=== PATIENT | female | born 1985 | race Caucasian/White ===

== ENCOUNTER 2020-02-05 02:27 | Emergency (ER) | payer SELFPAY ==
[2020-02-05] VITALS (8 sets, daily range): BP systolic 121–139; BP diastolic 79–103; PULSE 78–91; RESP 16–20; TEMP 37.3; O2SAT 96–99; BMI 26.5
--- NOTE | 2020-02-05 02:31 | ED_ITS ---
HPI - Abdominal Pain General: Chief Complaint: Abdominal Pain Stated Complaint: abd pain Time Seen by Provider: 02/05/20 02:28 Source: patient and EMS Mode of arrival: EMS Limitations: no limitations History of Present Illness: HPI narrative: 34-year-old female who states she has had sudden onset of left-sided flank pain is severe in nature. She has no history of kidney stones. Denies any worsening improving factors. Has had nausea and vomiting. MD elicited complaint: abdominal pain Pertinent past history: none Onset (ago): hour(s) Location: Diffuse Severity: severe Quality: stabbing Radiation: none Migration to: no migration Exacerbating factors: nothing Relieving factors: nothing Associated Symptoms: Reports nausea and vomiting; Denies chills, dysuria and fever(s) Review of Systems Const: Denies: fever(s), chills, body aches or change in appetite Eyes: Denies: blurry vision or eye discomfort ENMT: Denies: throat pain or dental pain Card: Denies: chest pain Resp: Denies: dyspnea GI: Reports: abdominal pain, nausea and vomiting : Denies: dysuria Musc: Denies: neck pain or back pain Skin/Breast: Denies: rash Neuro: Denies: headache(s) Psych: Denies: depression Bob/Lymph: Denies: easy bruising All/Imm: Denies: urticaria Physical Exam Const: COMMON NORMALS: no acute distress, patient oriented x3 and healthy appearing HENMT: COMMON NORMALS: normocephalic and atraumatic HEAD & SCALP: normocephalic and atraumatic Eye: COMMON NORMALS: Equal, round and reactive pupils present and EOMs intact bilaterally PUPIL: Yes Equal, round and reactive pupils present Neck/C-Spine: COMMON NORMALS: full ROM and supple Chest: COMMONS NORMALS: normal inspection of the chest and normal palpation of entire chest wall Resp: COMMON NORMALS: normal respiratory effort, No retractions, No use of accessory muscles and clear to auscultation bilaterally AUSCULTATION: clear to auscultation bilaterally Cardio: COMMON NORMALS: regular rate, regular rhythm and No murmurs present (Cardio) RATE: regular rate RHYTHM: regular rhythm GI: COMMON NORMALS: Normal to inspection, nondistended, normoactive bowel sounds present, Soft to palpation and no masses PALPATION: Yes Soft to pa lpation and Yes Tenderness to palpation present (GI) Extremity: COMMON NORMALS: normal to inspection and full ROM Neuro: COMMON NORMALS: patient oriented x3, moves all extremities and no focal motor deficits Psych: COMMON NORMALS: mental status grossly normal, Normal thought process present and cooperative THOUGHT PROCESS: Normal thought process present Skin: COMMON NORMALS: no rashes or lesions noted and no wounds GENERAL SKIN EXAM: no rashes or lesions noted Course Vital Signs: Vital signs: Vital Signs Temperature 99.2 F 02/05/20 02:28 Pulse Rate 78 02/05/20 05:07 Respiratory Rate 16 02/05/20 05:07 Blood Pressure 121/79 02/05/20 05:07 Pulse Oximetry 97 02/05/20 05:07 MDM - Abdominal Pain MDM Narrative: Medical decision making narrative: Patient presents here with a kidney stone. Kidney stone is 4 mm and should pass. We will send patient home with pain meds along with a urine strainer. She is to follow-up with Dr. Vuong. Her pain is much improved here. She is return if worsening. Lab Data: Labs: Lab Results 02/05/20 02/05/20 02/05/20 Range/Units 02:35 02:50 02:50 WBC 16.9 H (4.0-10.0) 10^3/ uL RBC 4.78 (4.1-5.3) 10^6/u L Hgb 13.9 (11.5-15.3) g/dL Hct 41.4 (37.0-47.0) % MCV 86.6 (81-99) fL MCH 29.1 (28.0-34.0) pg MCHC 33.6 (30.0-36.0) g/dL RDW 11.8 L (12.1-15.1) % Plt Count 308 (130-400) 10^3/c mm MPV 9.9 (7.4-10.4) fL Neut % (Auto) 82.3 % Lymph % (Auto) 12.5 % [place] % (Auto) 4.2 % Eos % (Auto) 0.1 % Baso % (Auto) 0.4 % Neut # (Auto) 13.88 H (1.8-7.7) 10^3/u L Lymph # (Auto) 2.1 (0.8-4.8) 10^3/u L [place] # (Auto) 0.7 (0.2-0.9) 10^3/u L Eos # (Auto) 0.0 (0.0-0.8) 10^3/u L Baso # (Auto) 0.1 (0.0-0.1) 10^3/u L Nucleated RBC % (a uto) 0 % Nucleated RBCs # 0.0 /100WBC Sodium 141 (136-145) mmol/L Potassium 4.4 (3.5-5.1) mmol/L Chloride 104 (98-107) mmol/L Carbon Dioxide 20 L (22-29) mmol/L Anion Gap 21.4 H (5-19) BUN 15 (6-20) mg/dL Creatinine 1.3 H (0.5-0.9) mg/dL GFR Calculation 46.9 L (90-130) mL/min Glucose 192 H (65-115) mg/dL Calculated Osmolal ity 293 (285-295) mOsm/k g Calcium 9.5 (8.5-10.5) mg/dL Total Bilirubin 0.5 (0.15-1.2) mg/dL AST 26 (0-32) U/L ALT 31 (0-33) U/L Alkaline Phosphata se 113 H (35-105) IU/L Total Protein 8.1 (6.6-8.7) g/dL Albumin 4.7 (3.5-5.2) g/dL Globulin 3.4 (1.3-4.6) g/dL Lipase 21 (13-60) U/L HCG, Qual (Negative) Urine Color Yellow (Yellow) Urine Appearance Hazy A (CLEAR) Urine pH 5 (5-7) Ur Specific Gravit y 1.015 (1.005-1.030) Urine Protein Neg (Negative) Urine Glucose (UA) Norm (Normal) Urine Ketones Negative (Negative) Urine Blood 3+ H (Negative) Urine Nitrate Negative (Negative) Urine Bilirubin Neg (NEGATIVE) Urine Urobilinogen Norm (Negative) mg/dL Ur Leukocyte Neena ase Negative (Negative) Urine RBC >100 H (0-2) /hpf Urine WBC 0-4 H (0-5) /hpf Ur Squamous Epith Cells 5-10 H (0-5) Amorphous Sediment Not Reportable Urine Bacteria 1+ H (NONE) Urine Mucus Trace 02/05/20 Range/Units 02:50 WBC (4.0-10.0) 10^3/ uL RBC (4.1-5.3) 10^6/u L Hgb (11.5-15.3) g/dL Hct (37.0-47.0) % MCV (81-99) fL MCH (28.0-34.0) pg MCHC (30.0-36.0) g/dL RDW (12.1-15.1) % Plt Count (130-400) 10^3/c mm MPV (7.4-10.4) fL Neut % (Auto) % Lymph % (Auto) % [place] % (Auto) % Eos % (Auto) % Baso % (Auto) % Neut # (Auto) (1.8-7.7) 10^3/u L Lymph # (Auto) (0.8-4.8) 10^3/u L [place] # (Auto) (0.2-0.9) 10^3/u L Eos # (Auto) (0.0-0.8) 10^3/u L Baso # (Auto) (0.0-0.1) 10^3/u L Nucleated RBC % (a uto) % Nucleated RBCs # /100WBC Sodium (136-145) mmol/L Potassium (3.5-5.1) mmol/L Chloride (98-107) mmol/L Carbon Dioxide (22-29) mmol/L Anion Gap (5-19) BUN (6-20) mg/dL Creatinine (0.5-0.9) mg/dL GFR Calculation (90-130) mL/min Glucose (65-115) mg/dL Calculated Osmolal ity (285-295) mOsm/k g Calcium (8.5-10.5) mg/dL Total Bilirubin (0.15-1.2) mg/dL AST (0-32) U/L ALT (0-33) U/L Alkaline Phosphata se (35-105) IU/L Total Protein (6.6-8.7) g/dL Albumin (3.5-5.2) g/dL Globulin (1.3-4.6) g/dL Lipase (13-60) U/L HCG, Qual Negative (Negative) Urine Color (Yellow) Urine Appearance (CLEAR) Urine pH (5-7) Ur Specific Gravit y (1.005-1.030) Urine Protein (Negative) Urine Glucose (UA) (Normal) Urine Ketones (Negative) Urine Blood (Negative) Urine Nitrate (Negative) Urine Bilirubin (NEGATIVE) Urine Urobilinogen (Negative) mg/dL Ur Leukocyte Neena ase (Negative) Urine RBC (0-2) /hpf Urine WBC (0-5) /hpf Ur Squamous Epith Cells (0-5) Amorphous Sediment Urine Bacteria (NONE) Urine Mucus Imaging Data ^: CT Abd/Pel: Radiologist's impression: [place] [address] CT Scan Report Signed Patient: Johnny Joyner Unit #: [id number] : 1985 Age/Sex: 34 / F ADM Date: 02/05/20 Loc: ER Room/Bed: Attending Dr: Ordering Provider/Ordering MD: Junito Luque MD Date of Service: 02/05/20 Procedure(s): CT abdomen pelvis w con* [id number] Accession Number(s): [id number] Report Number: [id number] PROCEDURE INFORMATION: Exam: CT Abdomen And Pelvis With Contrast Exam date and time: 02/05/2020 2:48 AM Age: 34 years old Clinical indication: Nausea; Abdominal pain; Localized; Left lower quadrant (llq); Additional info: Abd pain TECHNIQUE: Imaging protocol: Computed tomography of the abdomen and pelvis with intravenous contrast. Radiation optimization: All CT scans at this facility use at least one of these dose optimization techniques: automated exposure control; mA and/or kV adjustment per patient size (includes targeted exams where dose is matched to clinical indication); or iterative reconstruction. Contrast material: OMNI 300; Contrast volume: 95 ml; Contrast route: INTRAVENOUS (IV); COMPARISON: CT Abdomen/Pelvis Renal [id number] 03/22/2017 9:39 AM RADIATION DOSE METRICS: Total DLP (mGy-cm): 826.84 FINDINGS: Lungs: Mild atelectasis at bilateral lung bases. Liver: Unremarkable. Gallbladder and bile ducts: Unremarkable. Pancreas: Unremarkable. Spleen: Unremarkable. Adrenals: Unremarkable. Kidneys and ureters: The right kidney is unremarkable. There are several stones in the left kidney, largest 0.3 cm in the lower pole. There is a 0.4 cm stone in the left mid ureter (series 2, image 60). Mild left hydronephrosis. Mild inflammatory change of the left perinephric fat. Stomach and bowel: No bowel obstruction identified. No diverticulitis identified. Appendix: A normal-appearing appendix is seen in the right lower quadrant. Intraperitoneal space: No free intraperitoneal air identified. No free intraperitoneal fluid identified. Vasculature: No abdominal aortic aneurysm. Lymph nodes: Unremarkable. Bladder: Unremarkable as visualized. Reproductive: Unremarkable as visualized. Bones/joints: Unremarkable. No acute fracture. Soft tissues: Unremarkable. CT/CT abdomen pelvis w con* [id number] IMPRESSION: 1. There is a 0.4 cm stone in the left mid ureter. Mild left hydronephrosis. Discharge Plan Discharge Patient Disposition: Home, Self-Care Clinical Impression: Calculus of kidney Condition: Stable Prescriptions: [place] 5-325 mg tablet 1 tab PO Q6H PRN (Reason: pain) Qty: 14 RF: 0 ondansetron 4 mg tablet,disintegrating 4 mg PO Q6H PRN (Reason: nausea and vomiting) Qty: 14 RF: 0 Discharge Orders: Discharge Order (Routine); Ordered 02/05/20 Ordered By: Junito Luque Referrals: Alexander Vuong MD [Physician] - 4-7 days Discharge Diet: Advance as tolerated Discharge Activity: Resume usual activity Patient Instructions: Kidney Stones (ED) Coding Level of Care Code ED Apartment House Manager for Chg Fwd Exam Comprehensive
[2020-02-05] MEDS: HYDROmorphone 1 mg/mL INJ 1 mL IVP ×2 (02:48→03:40)
[2020-02-05] MEDS: ondansetron 2 mg/ML SDV 2 mL 4 MG IVP (02:48)
[2020-02-05] MEDS: sodium chloride 0.9% 1,000 ML 999 ML IV (02:48)
[2020-02-05 02:55] LABS: Basophils # 0.1 10^3/uL (0.0-0.1); Basophils % 0.4 %; Eosinophils % 0.1 %; Hematocrit 41.4 % (37.0-47.0); Hemoglobin 13.9 g/dL (11.5-15.3); Lymphocytes # 2.1 10^3/uL (0.8-4.8); Lymphocytes % 12.5 %; Mean Corpuscular HGB Conc 33.6 g/dL (30.0-36.0); Mean Corpuscular Hemoglobin 29.1 pg (28.0-34.0); Mean Corpuscular Volume 86.6 fL (81-99); Mean Platelet Volume 9.9 fL (7.4-10.4); Monocytes # 0.7 10^3/uL (0.2-0.9); Monocytes % 4.2 %; Neutrophils # 13.88 10^3/uL (1.8-7.7); Neutrophils % 82.3 %; Nucleated Red Blood Cells % 0 %; Platelet Count 308 10^3/cmm (130-400); Red Blood Count 4.78 10^6/uL (4.1-5.3); Red Cell Distribution Width 11.8 % (12.1-15.1); White Blood Count 16.9 10^3/uL (4.0-10.0)
[2020-02-05 03:08] LABS: HCG, Serum Qual Negative (Negative)
[2020-02-05 03:09] LABS: Add Urine Microscopic? YES; Bilirubin Urine Neg (NEGATIVE); Blood Urine 3+ (Negative); Glucose Urine UA Norm (Normal); Ketones Urine Negative (Negative); Leukocyte Esterase Urine Negative (Negative); Nitrate Urine Negative (Negative); Protein Urine Neg (Negative); Specific Gravity, Urine 1.015 (1.005-1.030); Urine Appearance Hazy (CLEAR); Urine Color Yellow (Yellow); Urobilinogen Urine Norm (Negative); pH Urine 5 (5-7)
[2020-02-05 03:10] LABS: RBC Urine >100 /hpf (0-2); WBC Urine 0-4 /hpf (0-5)
[2020-02-05 03:11] LABS: Add Urine Culture? Yes; Bacteria Urine 1+; Mucus Urine TRACE
[2020-02-05 03:13] LABS: Alanine Aminotransferase 31 U/L (0-33); Albumin Level 4.7 g/dL (3.5-5.2); Alkaline Phosphatase 113 IU/L (35-105); Anion Gap 21.4 (5-19); Aspartate Amino Transferase 26 U/L (0-32); Blood Urea Nitrogen 15 mg/dL (6-20); Calcium 9.5 mg/dL (8.5-10.5); Carbon Dioxide 20 mmol/L (22-29); Chloride 104 mmol/L (98-107); Globulin 3.4 g/dL (1.3-4.6); Glomerular Filtration Rate 46.9 mL/min (90-130); Glucose 192 mg/dL (65-115); Lipase 21 U/L (13-60); Osmolality Calculated 293 mOsm/kg (285-295); Potassium 4.4 mmol/L (3.5-5.1); Sodium 141 mmol/L (136-145); Total Bilirubin 0.5 mg/dL (0.15-1.2); Total Protein 8.1 g/dL (6.6-8.7)
[2020-02-05] MEDS: iohexol 300 mg/mL 100 mL Btl IV (03:18)
[2020-02-05] MEDS: ketorolac 30 mg/mL INJ 15 MG IVP (04:09)
--- NOTE | 2020-02-05 10:19 | DCPLANNER ---
employee welfare manager had message to schedule a follow up appointment with Dr. Vuong. employee welfare manager called the office of Dr. Vuong, spoke with Solange, gave clinic patients information. employee welfare manager was told that patients information would be printed and reviewed. Clinic will call patient with appointment information.
--- NOTE | 2020-02-06 10:13 | DCPLANNER ---
Leesa from the office of Dr. Vuong called heel caser stating that clinic tried to reach patient to schedule a follow up appointment for patient. strategic sourcing manager was told that patients phone numbers were disconnected. strategic sourcing manager called patients phone number [phone] and it was disconnected.
== END 2020-02-05 06:43 | disposition home or self-care (01) ==
PROVIDERS: Emergency Provider Emergency Medicine
DX: N20.0 Calculus of kidney (principal)
CPT/HCPCS: 12345; 74177; 80053; 81001; 81003; 83690; 84703; 85025; 87086; 96361; 96374; 96375; 96376; 99283; 99284; J1170; J1885; J2405; J7030; Q9967

== ENCOUNTER 2020-05-11 00:35 | Emergency (ER) | payer SELFPAY ==
[2020-05-11 00:36] VITALS: BP 137/94; PULSE 89; RESP 16; O2SAT 99
--- NOTE | 2020-05-11 00:39 | XRR_ITS ---
PROCEDURE INFORMATION: Exam: XR Abdomen, 1 View Exam date and time: 05/11/2020 12:59 AM Age: 34 years old Clinical indication: Abdominal pain; Patient HX: Left flank pain. History of renal calculi TECHNIQUE: Imaging protocol: XR of the abdomen. Views: Frontal supine view of the abdomen. 1 View. COMPARISON: CT abdomen pelvis w con* [id number] 02/05/2020 3:10 AM FINDINGS: Gastrointestinal tract: Normal. No bowel dilation. Bones/joints: Unremarkable. XR/XR KUB [id number] IMPRESSION: Negative for urinary calculus.
--- NOTE | 2020-05-11 00:39 | W.ED.ABDPA2 ---
HPI - Abdominal Pain General: Chief Complaint: Abdominal Pain Stated Complaint: poss kidney stones Time Seen by Provider: 05/11/20 00:36 Source: patient Mode of arrival: ambulatory Limitations: no limitations History of Present Illness: HPI narrative: Patient comes in today with complaints of left flank pain radiating into the groin. Patient has a history of renal calculi. Her last episode was at the end of January. Patient had a 4 mm stone in the mid ureter at that time. Patient believes she has passed that one. Reviewing of the record noted that she had a 3 mm stone in the left kidney still low. Patient did not follow-up with urology at the time due to moving. Patient has recently moved back to the area and has had a probable renal stone tonight. Patient appears well. Patient denies any fever. Patient did vomit x1. Patient appears in mild to moderate pain. Review of Systems General: Reports: 10 or more systems reviewed and unremarkable except in HPI and below : Reports: flank pain Physical Exam Const: COMMON NORMALS: no acute distress and patient oriented x3 GENERAL APPEARANCE: cooperative HENMT: COMMON NORMALS: normocephalic and Normal external nose present HEAD & SCALP: normal to inspection and normocephalic NOSE: Normal external nose present Eye: GENERAL EYE: appearance normal, both eyes and all related structures Neck/C-Spine: COMMON NORMALS: full ROM Chest: COMMONS NORMALS: normal inspection of the chest Resp: COMMON NORMALS: normal respiratory effort EFFORT & INSPECTION: Yes able to speak in complete sentences Cardio: COMMON NORMALS: regular rate and regular rhythm RATE: regular rate RHYTHM: regular rhythm GI: COMMON NORMALS: non-tender : BLADDER/KIDNEY EXAM: Yes CVA tenderness on the left Back/Pelvis: COMMON NORMALS: thoracic and lumbar spine normal to inspection GENERAL BACK: Yes CVA tenderness Extremity: COMMON NORMALS: normal to inspection Neuro: COMMON NORMALS: patient oriented x3 and moves all extremities Psych: COMMON NORMALS: mental status grossly normal and cooperative Skin: COMMON NORMALS: no rashes or lesions noted GENERAL SKIN EXAM: no rashes or lesions noted Course ED course: 107, patient developed hives to right forearm at IV site, probable from morphine injection. respiration even, no distress. Vital Signs: Vital signs: Vital Signs Temperature 98.4 F 05/11/20 00:40 Pulse Rate 97 05/11/20 01:51 Respiratory Rate 16 10/24/20 01:51 Blood Pressure 112/84 05/11/20 01:51 Pulse Oximetry 98 05/11/20 01:51 MDM - Abdominal Pain MDM Narrative: Medical decision making narrative: Patient comes in with left flank pain radiating into the groin. Patient has a history of renal stones. Last time patient had a CT was at the end of January. There was a 4 mm stone in the mid ureter, and a 3 mm stone in the kidney. Patient comes in tonight due to increased discomfort. Patient denies any fever. Differential diagnosis includes cystitis, pyelonephritis, renal calculi. Urinalysis was positive for blood. Laboratory values were unremarkable. KUB done did not indicate any stone. Strongly suspect a left renal calculi. Recommend the patient follow-up with Dr. Vuong. Patient will be continued on medications for pain and nausea. Patient reported understanding agreed to plan. Lab Data: Labs: Lab Results 05/11/20 05/11/20 05/11/20 Range/Units 00:52 00:52 00:52 WBC 9.6 (4.0-10.0) 10^3/ uL RBC 4.54 (4.1-5.3) 10^6/u L Hgb 13.2 (11.5-15.3) g/dL Hct 39.1 (37.0-47.0) % MCV 86.1 (81-99) fL MCH 29.1 (28.0-34.0) pg MCHC 33.8 (30.0-36.0) g/dL RDW 11.7 L (12.1-15.1) % Plt Count 272 (130-400) 10^3/c mm MPV 9.9 (7.4-10.4) fL Neut % (Auto) 59.7 % Lymph % (Auto) 31.8 % [place] % (Auto) 5.8 % Eos % (Auto) 1.7 % Baso % (Auto) 0.6 % Neut # (Auto) 5.73 (1.8-7.7) 10^3/u L Lymph # (Auto) 3.1 (0.8-4.8) 10^3/u L [place] # (Auto) 0.6 (0.2-0.9) 10^3/u L Eos # (Auto) 0.2 (0.0-0.8) 10^3/u L Baso # (Auto) 0.1 (0.0-0.1) 10^3/u L Nucleated RBC % (a uto) 0 % Nucleated RBCs # 0.0 /100WBC Sodium 139 (136-145) mmol/L Potassium 3.7 (3.5-5.1) mmol/L Chloride 104 (98-107) mmol/L Carbon Dioxide 22 (22-29) mmol/L Anion Gap 16.7 (5-19) BUN 15 (6-20) mg/dL Creatinine 1.0 H (0.5-0.9) mg/dL GFR Calculation 63.5 L (90-130) mL/min Glucose 135 H (65-115) mg/dL Calculated Osmolal ity 291 (285-295) mOsm/k g Calcium 9.8 (8.5-10.5) mg/dL Total Bilirubin 0.4 (0.15-1.2) mg/dL AST 24 (0-32) U/L ALT 32 (0-33) U/L Alkaline Phosphata se 102 (35-105) IU/L Total Protein 7.0 (6.6-8.7) g/dL Albumin 4.4 (3.5-5.2) g/dL Globulin 2.6 (1.3-4.6) g/dL HCG, Qual Negative (Negative) Urine Color (Yellow) Urine Appearance (CLEAR) Urine pH (5-7) Ur Specific Gravit y (1.005-1.030) Urine Protein (Negative) Urine Glucose (UA) (Normal) Urine Ketones (Negative) Urine Blood (Negative) Urine Nitrate (Negative) Urine Bilirubin (Negative) Urine Urobilinogen (Negative) mg/dL Ur Leukocyte Neena ase (Negative) Urine RBC (0-2) /hpf Urine WBC (0-5) /hpf Ur Squamous Epith Cells (0-5) /hpf Uric Acid Crystals /hpf Amorphous Sediment Urine Bacteria (NONE) /hpf Urine Mucus /hpf 05/11/20 Range/Units 01:46 WBC (4.0-10.0) 10^3/ uL RBC (4.1-5.3) 10^6/u L Hgb (11.5-15.3) g/dL Hct (37.0-47.0) % MCV (81-99) fL MCH (28.0-34.0) pg MCHC (30.0-36.0) g/dL RDW (12.1-15.1) % Plt Count (130-400) 10^3/c mm MPV (7.4-10.4) fL Neut % (Auto) % Lymph % (Auto) % [place] % (Auto) % Eos % (Auto) % Baso % (Auto) % Neut # (Auto) (1.8-7.7) 10^3/u L Lymph # (Auto) (0.8-4.8) 10^3/u L [place] # (Auto) (0.2-0.9) 10^3/u L Eos # (Auto) (0.0-0.8) 10^3/u L Baso # (Auto) (0.0-0.1) 10^3/u L Nucleated RBC % (a uto) % Nucleated RBCs # /100WBC Sodium (136-145) mmol/L Potassium (3.5-5.1) mmol/L Chloride (98-107) mmol/L Carbon Dioxide (22-29) mmol/L Anion Gap (5-19) BUN (6-20) mg/dL Creatinine (0.5-0.9) mg/dL GFR Calculation (90-130) mL/min Glucose (65-115) mg/dL Calculated Osmolal ity (285-295) mOsm/k g Calcium (8.5-10.5) mg/dL Total Bilirubin (0.15-1.2) mg/dL AST (0-32) U/L ALT (0-33) U/L Alkaline Phosphata se (35-105) IU/L Total Protein (6.6-8.7) g/dL Albumin (3.5-5.2) g/dL Globulin (1.3-4.6) g/dL HCG, Qual (Negative) Urine Color Yellow (Yellow) Urine Appearance Clear (CLEAR) Urine pH 5 (5-7) Ur Specific Gravit y 1.020 (1.005-1.030) Urine Protein Neg (Negative) Urine Glucose (UA) Norm (Normal) Urine Ketones Negative (Negative) Urine Blood 3+ H (Negative) Urine Nitrate Negative (Negative) Urine Bilirubin Neg (Negative) Urine Urobilinogen Norm (Negative) mg/dL Ur Leukocyte Neena ase Negative (Negative) Urine RBC 25-40 H (0-2) /hpf Urine WBC 0-4 H (0-5) /hpf Ur Squamous Epith Cells 0-4 H (0-5) /hpf Uric Acid Crystals 0-4 /hpf Amorphous Sediment Not Reportable Urine Bacteria 1+ H (NONE) /hpf Urine Mucus 1+ /hpf Discharge Plan Discharge Patient Disposition: Home Clinical Impression: Renal colic on left side Condition: Stable Prescriptions: Continued [place] 5-325 mg tablet 1 tab PO Q6H PRN (Reason: pain) Qty: 14 RF: 0 ondansetron 4 mg tablet,disintegrating 4 mg PO Q6H PRN (Reason: nausea and vomiting) Qty: 10 RF: 0 Discharge Orders: Discharge Order (Routine); Ordered 05/11/20 Ordered By: Rajendra Madrigal Discharge Diet: Usual diet Discharge Activity: Increase activity as tolerated Patient Instructions: Kidney Stones (ED) Activity Restrictions/Additional Instructions: Drink plenty of water. Take medications as directed. Return to the emergency room for high fever or uncontrolled pain. Follow-up with Dr. Vuong's office for further treatment and evaluation. Case management will contact you regarding follow-up appointment. Coding Level of Care Code ED Master Machinist for Xavier Fwsalma Exam Comprehensive
[2020-05-11 00:40] VITALS: BP 126/88; PULSE 81; RESP 16; TEMP 36.9; O2SAT 99; BMI 26.5
[2020-05-11] MEDS: ondansetron 2 mg/ML SDV 2 mL 4 MG IVP (00:57)
[2020-05-11 00:58] VITALS: RESP 18; O2SAT 98
[2020-05-11] MEDS: morphine 4 mg/mL SDV 1 mL 2 MG IVP (00:58)
[2020-05-11] MEDS: ketorolac 30 mg/mL INJ 15 MG IVP (01:01)
[2020-05-11] MEDS: diphenhydrAMINE 50 mg/mL SDV 1mL 25 MG IVP (01:10)
[2020-05-11 01:15] VITALS: BP 112/84; PULSE 69; RESP 16; O2SAT 97
[2020-05-11 01:15] LABS: Basophils # 0.1 10^3/uL (0.0-0.1); Basophils % 0.6 %; Eosinophils # 0.2 10^3/uL (0.0-0.8); Eosinophils % 1.7 %; Hematocrit 39.1 % (37.0-47.0); Hemoglobin 13.2 g/dL (11.5-15.3); Lymphocytes # 3.1 10^3/uL (0.8-4.8); Lymphocytes % 31.8 %; Mean Corpuscular HGB Conc 33.8 g/dL (30.0-36.0); Mean Corpuscular Hemoglobin 29.1 pg (28.0-34.0); Mean Corpuscular Volume 86.1 fL (81-99); Mean Platelet Volume 9.9 fL (7.4-10.4); Monocytes # 0.6 10^3/uL (0.2-0.9); Monocytes % 5.8 %; Neutrophils # 5.73 10^3/uL (1.8-7.7); Neutrophils % 59.7 %; Nucleated Red Blood Cells % 0 %; Platelet Count 272 10^3/cmm (130-400); Red Blood Count 4.54 10^6/uL (4.1-5.3); Red Cell Distribution Width 11.7 % (12.1-15.1); White Blood Count 9.6 10^3/uL (4.0-10.0)
[2020-05-11] MEDS: sodium chloride 0.9% 500 ML 999 ML IV (01:19)
[2020-05-11 01:24] LABS: HCG, Serum Qual Negative (Negative)
[2020-05-11 01:33] LABS: Alanine Aminotransferase 32 U/L (0-33); Albumin Level 4.4 g/dL (3.5-5.2); Alkaline Phosphatase 102 IU/L (35-105); Anion Gap 16.7 (5-19); Aspartate Amino Transferase 24 U/L (0-32); Blood Urea Nitrogen 15 mg/dL (6-20); Calcium 9.8 mg/dL (8.5-10.5); Carbon Dioxide 22 mmol/L (22-29); Chloride 104 mmol/L (98-107); Globulin 2.6 g/dL (1.3-4.6); Glomerular Filtration Rate 63.5 mL/min (90-130); Glucose 135 mg/dL (65-115); Osmolality Calculated 291 mOsm/kg (285-295); Potassium 3.7 mmol/L (3.5-5.1); Sodium 139 mmol/L (136-145); Total Bilirubin 0.4 mg/dL (0.15-1.2)
[2020-05-11 01:51] VITALS: BP 112/84; PULSE 97; RESP 16; O2SAT 98
[2020-05-11 02:14] LABS: Add Urine Microscopic? YES; Bilirubin Urine Neg (Negative); Blood Urine 3+ (Negative); Glucose Urine UA Norm (Normal); Ketones Urine Negative (Negative); Leukocyte Esterase Urine Negative (Negative); Nitrate Urine Negative (Negative); Protein Urine Neg (Negative); Urine Appearance Clear (CLEAR); Urine Color Yellow (Yellow); Urobilinogen Urine Norm (Negative); pH Urine 5 (5-7)
[2020-05-11 02:17] LABS: Bacteria Urine 1+ /hpf; Mucus Urine 1+ /hpf; RBC Urine 25-40 /hpf (0-2); Squamous Epithelial Cell Urine 0-4 /hpf (0-5); Uric Acid Crystals Urine 0-4 /hpf; WBC Urine 0-4 /hpf (0-5)
[2020-05-11 02:18] LABS: Add Urine Culture? Yes
[2020-05-11 02:30] VITALS: BP 124/71; PULSE 81; O2SAT 97
--- NOTE | 2020-05-13 11:06 | DCPLANNER ---
bilingual branch manager had message to schedule a follow up appointment for patient with Dr. Vuong. bilingual branch manager called the office of Dr. Del Rosario, spoke with Leesa, gave clinic patients information. bilingual branch manager was told that patients information would be printed and reviewed. Clinic will call patient with appointment information.
--- NOTE | 2020-05-16 11:11 | DCPLANNER ---
Leesa from the office of Dr. Vuong, called showcase maker stating that the clinic was unable to reach patient to schedule an appointment. There was no working number in patients chart.
== END 2020-05-11 05:30 | disposition home or self-care (01) ==
PROVIDERS: Emergency Provider Nurse Practitioner Family
DX: N23 Unspecified renal colic (principal); Z87.442 Personal history of urinary calculi
CPT/HCPCS: 12345; 74018; 80053; 81001; 84703; 85025; 87086; 96374; 96375; 99283; J1200; J1885; J2270; J2405; J7040

== ENCOUNTER 2020-06-23 06:28 | Emergency (ER) | payer BC, SELFPAY ==
--- NOTE | 2020-06-23 06:33 | XRR_ITS ---
PROCEDURE INFORMATION: Exam: XR Abdomen, 1 View Exam date and time: 06/23/2020 6:34 AM Age: 34 years old Clinical indication: Abdominal pain; Flank; Left; Additional info: Renal stone TECHNIQUE: Imaging protocol: XR of the abdomen. Views: Frontal supine view of the abdomen. 1 View. COMPARISON: 1. CR XR KUB [id number] 05/11/2020 12:[address] of the abdomen and pelvis 06/23/2020 FINDINGS: Gastrointestinal tract: Unremarkable. No bowel dilation. Bones/joints: Unremarkable. Other: There is a 0.7 cm calcification overlying the left transverse process of L3. This is compatible with a stone in the left upper ureter as seen on subsequently performed CT of the abdomen and pelvis on 06/23/2020. XR/XR KUB portable [id number] IMPRESSION: 1. There is a 0.7 cm calcification overlying the left transverse process of L3. This is compatible with a stone in the left upper ureter as seen on subsequently performed CT of the abdomen and pelvis on 06/23/2020.
--- NOTE | 2020-06-23 06:35 | ED_ITS ---
HPI - Female Genitourinary General: Chief complaint: Urogenital-Female Stated complaint: possible kidney stones,left flank pain Time Seen by Provider: 06/23/20 06:33 History of Present Illness: HPI Narrative: 34-year-old female presents emergency room complaining of left flank pain concerned she may have a renal stone. She did have a 4 mm renal stone in January of this year. She previously had kidney stones requiring a stent prior to that. This morning she woke with severe left flank pain radiating down to the groin she has not noticed any hematuria. She not had any pain or discomfort yesterday. She denies dysuria urgency or frequency. No fever sweats or chills. No recent respiratory illness or flulike symptoms MD elicited complaint: flank pain Pertinent past history: other (Nephrolithiasis) Onset (ago): hour(s) Location of symptoms: flank Severity: severe Severity scale (1-10): 10 Quality of pain: sharp Vaginal discharge: none Vaginal bleeding: none Urinary symptoms: Flank Pain Relieving factors: none Associated symptoms: Deny abdominal pain, short of breath, fevers/chills, headache(s), nausea, rash, seizures, syncope or vaginal discharge Treatment prior to arrival: none Review of Systems Const: Denies: fever(s), chills, body aches, change in appetite, fatigue or malaise ENMT: Denies: throat pain, ear or mastoid pain, nasal discharge or nasal congestion Card: Denies: syncope Resp: Denies: dyspnea, productive cough or non-productive cough GI: Denies: abdominal pain or nausea : Denies: vaginal discharge Skin/Breast: Denies: rash or pruritus Neuro: Denies: headache(s) PFS ED PFSH: Medical History (Updated 06/23/20 @ 09:46 by Rc Acosta DO) Nephrolithiasis Physical Exam Const: COMMON NORMALS: no acute distress GENERAL APPEARANCE: cooperative and comfortable ORIENTATION/CONSCIOUSNESS: Yes awake, Yes oriented to person, Yes oriented to place and Yes oriented to time HENMT: COMMON NORMALS: normocephalic, atraumatic and hearing grossly normal bilaterally HEAD & SCALP: normocephalic and atraumatic Neck/C-Spine: COMMON NORMALS: no JVD Resp: COMMON NORMALS: normal respiratory effort, No retractions, No use of accessory muscles and clear to auscultation bilaterally AUSCULTATION: clear to auscultation bilaterally Cardio: COMMON NORMALS: no JVD, regular rate, regular rhythm and No murmurs present (Cardio) RATE: regular rate RHYTHM: regular rhythm GI: COMMON NORMALS: Soft to palpation and No hepatosplenomegaly present AUSCULTATION: Yes normoactive bowel sounds PALPATION: Yes Soft to palpation, No Tenderness to palpation present (GI), No Guarding due to palpation present (GI) and Yes No hepatosplenomegaly present : BLADDER/KIDNEY EXAM: Yes CVA tenderness Back/Pelvis: GENERAL BACK: Yes CVA tenderness CVA tenderness: left Extremity: COMMON NORMALS: normal to inspection, capillary refill normal, no clubbing, cyanosis or edema, no calf tenderness and no pedal edema Neuro: SENSORIUM/ORIENTATION: Yes oriented to person, Yes oriented to place and Yes oriented to time Course Vital Signs: Vital signs: Vital Signs Temperature 98.5 F 06/23/20 06:36 Pulse Rate 100 06/23/20 06:36 Respiratory Rate 26 H 06/23/20 06:57 Blood Pressure 174/107 06/23/20 06:36 Pulse Oximetry 97 06/23/20 06:36 MDM - Female MDM Narrative: Medical decision making narrative: Discussed CT findings with patient as well as with Dr. Vuong. Patient has a fairly large size stone mid ureter her pain is well controlled at this point working to go ahead and discharge home we will prescreen her for Covid as per Dr. Vuong's request. Additionally we will send her home on tamsulosin and Zofran and hydrocodone to manage her pain if her pain becomes uncontrolled or she should return. She should use laxatives at night I recommended that she use at least a half a bottle of mag citrate early this evening or late afternoon after which she should only have clear liquids she can take medicines with sips of liquid. Present to Dr. Vuong's office around 9:00 tomorrow morning he is anticipating her being in the office and plans to take her for lithotripsy. If she has uncontrollable pain she should return to the emergency room to be reevaluated discussed this with her. We also gave her a note for work. Lab Data: Labs: Lab Results 12/06/20 12/06/20 12/06/20 Range/Units 06:49 06:49 06:49 WBC 9.7 (4.0-10.0) 10^3/ uL RBC 4.80 (4.1-5.3) 10^6/u L Hgb 13.9 (11.5-15.3) g/dL Hct 40.5 (37.0-47.0) % MCV 84.4 (81-99) fL MCH 29.0 (28.0-34.0) pg MCHC 34.3 (30.0-36.0) g/dL RDW 11.6 L (12.1-15.1) % Plt Count 283 (130-400) 10^3/c mm MPV 9.9 (7.4-10.4) fL Neut % (Auto) 69.4 % Lymph % (Auto) 23.8 % [place] % (Auto) 4.7 % Eos % (Auto) 1.1 % Baso % (Auto) 0.7 % Neut # (Auto) 6.73 (1.8-7.7) 10^3/u L Lymph # (Auto) 2.3 (0.8-4.8) 10^3/u L [place] # (Auto) 0.5 (0.2-0.9) 10^3/u L Eos # (Auto) 0.1 (0.0-0.8) 10^3/u L Baso # (Auto) 0.1 (0.0-0.1) 10^3/u L Nucleated RBC % (a uto) 0 % Nucleated RBCs # 0.0 /100WBC Sodium 139 (136-145) mmol/L Potassium 4.0 (3.5-5.1) mmol/L Chloride 102 (98-107) mmol/L Carbon Dioxide 22 (22-29) mmol/L Anion Gap 19.0 (5-19) BUN 17 (6-20) mg/dL Creatinine 1.2 H (0.5-0.9) mg/dL GFR Calculation 51.4 L (90-130) mL/min Glucose 153 H (65-115) mg/dL Calculated Osmolal ity 293 (285-295) mOsm/k g Calcium 10.1 (8.5-10.5) mg/dL Total Bilirubin 0.6 (0.15-1.2) mg/dL AST 25 (0-32) U/L ALT 43 H (0-33) U/L Alkaline Phosphata se 103 (35-105) IU/L Total Protein 7.5 (6.6-8.7) g/dL Albumin 4.5 (3.5-5.2) g/dL Globulin 3.0 (1.3-4.6) g/dL HCG, Qual Negative (Negative) Urine Color (Yellow) Urine Appearance (CLEAR) Urine pH (5-7) Ur Specific Gravit y (1.005-1.030) Urine Protein (Negative) Urine Glucose (UA) (Normal) Urine Ketones (Negative) Urine Blood (Negative) Urine Nitrate (Negative) Urine Bilirubin (Negative) Urine Urobilinogen (Negative) mg/dL Ur Leukocyte Neena ase (Negative) Urine RBC (0-2) /hpf Urine WBC (0-5) /hpf Ur Squamous Epith Cells (0-5) /hpf Amorphous Sediment Urine Bacteria (NONE) /hpf Urine Mucus /hpf 06/23/20 06/23/20 Range/Units 07:12 07:12 WBC (4.0-10.0) 10^3/ uL RBC (4.1-5.3) 10^6/u L Hgb (11.5-15.3) g/dL Hct (37.0-47.0) % MCV (81-99) fL MCH (28.0-34.0) pg MCHC (30.0-36.0) g/dL RDW (12.1-15.1) % Plt Count (130-400) 10^3/c mm MPV (7.4-10.4) fL Neut % (Auto) % Lymph % (Auto) % [place] % (Auto) % Eos % (Auto) % Baso % (Auto) % Neut # (Auto) (1.8-7.7) 10^3/u L Lymph # (Auto) (0.8-4.8) 10^3/u L [place] # (Auto) (0.2-0.9) 10^3/u L Eos # (Auto) (0.0-0.8) 10^3/u L Baso # (Auto) (0.0-0.1) 10^3/u L Nucleated RBC % (a uto) % Nucleated RBCs # /100WBC Sodium (136-145) mmol/L Potassium (3.5-5.1) mmol/L Chloride (98-107) mmol/L Carbon Dioxide (22-29) mmol/L Anion Gap (5-19) BUN (6-20) mg/dL Creatinine (0.5-0.9) mg/dL GFR Calculation (90-130) mL/min Glucose (65-115) mg/dL Calculated Osmolal ity (285-295) mOsm/k g Calcium (8.5-10.5) mg/dL Total Bilirubin (0.15-1.2) mg/dL AST (0-32) U/L ALT (0-33) U/L Alkaline Phosphata se (35-105) IU/L Total Protein (6.6-8.7) g/dL Albumin (3.5-5.2) g/dL Globulin (1.3-4.6) g/dL HCG, Qual Cancelled (Negative) Urine Color Yellow (Yellow) Urine Appearance Hazy A (CLEAR) Urine pH 5 (5-7) Ur Specific Gravit y 1.015 (1.005-1.030) Urine Protein Trace (Negative) Urine Glucose (UA) Norm (Normal) Urine Ketones Negative (Negative) Urine Blood 3+ H (Negative) Urine Nitrate Negative (Negative) Urine Bilirubin Neg (Negative) Urine Urobilinogen Norm (Negative) mg/dL Ur Leukocyte Neena ase Negative (Negative) Urine RBC 80-100 H (0-2) /hpf Urine WBC 10-15 H (0-5) /hpf Ur Squamous Epith Cells 5-10 H (0-5) /hpf Amorphous Sediment Not Reportable Urine Bacteria 2+ H (NONE) /hpf Urine Mucus 1+ /hpf Discharge Plan Discharge Patient Disposition: Home Clinical Impression: Nephrolithiasis Condition: Stable Prescriptions: New hydrocodone-acetaminophen 5-325 mg tablet 1 tab PO Q6H PRN (Reason: pain) Qty: 20 RF: 0 Zofran 4 mg tablet 4 mg PO Q6H PRN (Reason: nausea and vomiting) Qty: 20 RF: 0 Flomax 0.4 mg capsule 0.4 mg PO DAILY Qty: 30 RF: 0 No Action ondansetron 4 mg tablet,disintegrating 4 mg PO Q6H PRN (Reason: nausea and vomiting) Qty: 10 RF: 0 Discharge Orders: Discharge ED (Routine); Ordered 06/23/20 Ordered By: Rc Acosta Discharge Diet: Clear Liquid Discharge Activity: Increase activity as tolerated Activity Restrictions/Additional Instructions: Sent to Dr. Vuong's office at 9 AM tomorrow morning. You should take half a bottle of GoLYTELY at 8 PM tonight. Push clear liquids through the night. Pain medications as prescribed. If pain is uncontrolled return to the emergency room. After midnight do not take any solid food and only take medicines with sips of liquids as needed. 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
[2020-06-23 06:36] VITALS: BP 174/107; PULSE 100; RESP 22; TEMP 36.9; O2SAT 97; BMI 30.2
[2020-06-23 06:56] LABS: Basophils # 0.1 10^3/uL (0.0-0.1); Basophils % 0.7 %; Eosinophils # 0.1 10^3/uL (0.0-0.8); Eosinophils % 1.1 %; Hematocrit 40.5 % (37.0-47.0); Hemoglobin 13.9 g/dL (11.5-15.3); Lymphocytes # 2.3 10^3/uL (0.8-4.8); Lymphocytes % 23.8 %; Mean Corpuscular HGB Conc 34.3 g/dL (30.0-36.0); Mean Corpuscular Volume 84.4 fL (81-99); Mean Platelet Volume 9.9 fL (7.4-10.4); Monocytes # 0.5 10^3/uL (0.2-0.9); Monocytes % 4.7 %; Neutrophils # 6.73 10^3/uL (1.8-7.7); Neutrophils % 69.4 %; Nucleated Red Blood Cells % 0 %; Platelet Count 283 10^3/cmm (130-400); Red Cell Distribution Width 11.6 % (12.1-15.1); White Blood Count 9.7 10^3/uL (4.0-10.0)
[2020-06-23] MEDS: ondansetron 2 mg/ML SDV 2 mL 4 MG IVP (06:56)
[2020-06-23 06:57] VITALS: RESP 26
[2020-06-23] MEDS: morphine 4 mg/mL SDV 1 mL IVP ×2 (06:57→08:09)
[2020-06-23 07:19] LABS: Alanine Aminotransferase 43 U/L (0-33); Albumin Level 4.5 g/dL (3.5-5.2); Alkaline Phosphatase 103 IU/L (35-105); Aspartate Amino Transferase 25 U/L (0-32); Blood Urea Nitrogen 17 mg/dL (6-20); Calcium 10.1 mg/dL (8.5-10.5); Carbon Dioxide 22 mmol/L (22-29); Chloride 102 mmol/L (98-107); Glomerular Filtration Rate 51.4 mL/min (90-130); Glucose 153 mg/dL (65-115); Osmolality Calculated 293 mOsm/kg (285-295); Sodium 139 mmol/L (136-145); Total Bilirubin 0.6 mg/dL (0.15-1.2); Total Protein 7.5 g/dL (6.6-8.7)
[2020-06-23 07:20] LABS: HCG, Serum Qual Negative (Negative)
[2020-06-23] MEDS: promethazine 25 mg/mL SDV 1 mL IM (07:40)
[2020-06-23 08:03] LABS: Add Urine Microscopic? YES; Bilirubin Urine Neg (Negative); Blood Urine 3+ (Negative); Glucose Urine UA Norm (Normal); Ketones Urine Negative (Negative); Leukocyte Esterase Urine Negative (Negative); Nitrate Urine Negative (Negative); Protein Urine Trace (Negative); Specific Gravity, Urine 1.015 (1.005-1.030); Urine Appearance Hazy (CLEAR); Urine Color Yellow (Yellow); Urobilinogen Urine Norm (Negative); pH Urine 5 (5-7)
[2020-06-23 08:05] LABS: RBC Urine 80-100 /hpf (0-2)
[2020-06-23 08:06] LABS: Bacteria Urine 2+ /hpf
[2020-06-23 08:07] LABS: Add Urine Culture? Yes; Mucus Urine 1+ /hpf
--- NOTE | 2020-06-23 08:27 | CTR_ITS ---
PROCEDURE INFORMATION: Exam: CT Abdomen And Pelvis Without Contrast Exam date and time: 06/23/2020 8:27 AM Age: 34 years old Clinical indication: Abdominal pain; Flank; Left; Additional info: Flank pain TECHNIQUE: Imaging protocol: Computed tomography of the abdomen and pelvis without contrast. Radiation optimization: All CT scans at this facility use at least one of these dose optimization techniques: automated exposure control; mA and/or kV adjustment per patient size (includes targeted exams where dose is matched to clinical indication); or iterative reconstruction. COMPARISON: CT abdomen pelvis w con* [id number] 02/05/2020 3:10 AM RADIATION DOSE METRICS: Total DLP (mGy-cm): 1296.14 FINDINGS: Limitations: Examinations performed without intravenous contrast have limited ability to detect many conditions. Liver: Unremarkable. Gallbladder and bile ducts: Unremarkable. Pancreas: Unremarkable. Spleen: Unremarkable. Adrenal glands: Unremarkable. Kidneys and ureters: Many stones scattered in the right kidney, largest 0.3 cm in the mid kidney. Many stones scattered in the left kidney, largest 0.5 cm in the lower pole. There is a 1.1 cm stone in the left upper ureter on series 2, image 69. Moderate left hydronephrosis. Moderate inflammatory change of the left perinephric fat. Stomach and bowel: No bowel obstruction identified. No diverticulitis identified. Appendix: The appendix is visualized in the right lower quadrant. Focal enlargement of the distal appendix to 0.9 cm on series 2, image 112. A similar finding is present on the prior study, indicating that this appearance is baseline for this patient. Intraperitoneal space: No free intraperitoneal air identified. No free intraperitoneal fluid identified. Vasculature: No abdominal aortic aneurysm. Lymph nodes: Unremarkable. Urinary bladder: Unremarkable as visualized. Reproductive: Unremarkable as visualized. Bones/joints: No emergent findings identified. Soft tissues: Unremarkable. CT/CT kidney stone [id number] IMPRESSION: 1. Left upper ureteral stone measuring 1.1 cm. Moderate left hydronephrosis. Radiation Dose CTDIVOL = (mGy): DLP = 1296.14 (mGy-cm)
--- NOTE | 2020-06-23 09:28 | PC.NURSE ---
Read and agree with assessment.
[2020-06-23 09:56] VITALS: BP 138/79; PULSE 70; RESP 15; O2SAT 98
[2020-06-25 09:25] LABS: Coronavirus Lab Test PTC Negative
--- NOTE | 2020-06-25 18:31 | PC.NURSE ---
pt was contacted and given the results of her covid test
== END 2020-06-23 09:56 | disposition home or self-care (01) ==
PROVIDERS: Emergency Provider Family Medicine
DX: N20.2 Calculus of kidney with calculus of ureter (principal); Z87.442 Personal history of urinary calculi
CPT/HCPCS: 12345; 74018; 74176; 80053; 81001; 84703; 85025; 87086; 87635; 96372; 96374; 96375; 96376; 99283; J2270; J2405; J2550

== ENCOUNTER 2020-06-24 08:58 | Outpatient (CLI) | payer BC, SELFPAY ==
--- NOTE | 2020-06-24 09:07 | XR_ITS ---
WS: [id number] XR KUB [id number] REASON FOR EXAM: STONES FINDINGS: CT scan from 06/23/2020 demonstrates multiple small renal calculi bilaterally and a large calculus in the region of the left ureteral pelvic junction with obstructive uropathy. No urinary tract calculi are identified within the abdomen or pelvis. XR/XR KUB [id number] IMPRESSION: Unless the large left ureteral calculus was removed in the interim one would ex pect to see the large calculus demonstrated on the CT scan near the ureteropelv ic junction at the L2 level. Have confirmed that this abdominal film was the co rrect patient.
== END 2020-06-24 08:59 | disposition home or self-care (01) ==
PROVIDERS: Visit Provider Nurse Practitioner Family
DX: N20.1 Calculus of ureter (principal)
CPT/HCPCS: 74018; 81003

== ENCOUNTER 2020-06-24 10:48 | Day surgery (SDC) | payer BC, SELFPAY ==
[2020-06-24] VITALS (12 sets, daily range): BP systolic 101–132; BP diastolic 6–91; PULSE 77–120; RESP 18–26; TEMP 36.6–37.1; O2SAT 94–99; BMI 30.2
[2020-06-24 11:21] LABS: Glucose Point of Care 119 mg/dL (70-110)
[2020-06-24] MEDS: morphine 4 mg/mL SDV 1 mL 2 MG IVP (11:34)
[2020-06-24] MEDS: ondansetron 2 mg/ML SDV 2 mL 4 MG IVP ×3 (11:37→15:40)
[2020-06-24] MEDS: sodium chloride 0.9% 1,000 ML 30 ML IV (11:40)
[2020-06-24] MEDS: fentaNYL 50 mcg/mL INJ 2mL IVP ×2 (11:42→12:11)
--- NOTE | 2020-06-24 11:56 | ANES.PREANE2 ---
Pre-Anesthetic Assessment Pre-Anesthetic Assessment: Height/Weight: Height 1.57 m Weight 74.843 kg Temp Pulse Resp BP Pulse Ox 97.8 F 93 22 H 132/91 98 06/24/20 11:32 06/24/20 11:32 06/24/20 11:34 06/24/20 11:32 06/24/20 11:34 Preop Diagnosis: Large left proximal ureteral stone, obstructing Proposed Procedure: Operation Date: 06/24/20 13:30 Proposed Procedures p ESWL [id number] 47735 N21.1(Left) - Alexander Vuong MD s Cystoscopy(Left) - Alexander Vuong MD s Ureteral Stent Placement(Left) - Alexander Vuong MD Familial anesthetic complications: None Was Beta Nate taken within 24 hours: N/A Last intake: Intake Last Liquid Date 06/24/20 Last Liquid Time 09:30 Last Solid Date 06/21/20 Social: Social History: No alcohol and No tobacco Exam: Pre-Anes Outpt Exam: alert, oriented x 3, clear to auscultation bilaterally and regular rate & rhythm Airway: Cervical ROM: WNL MP: 3 Dentition: Full Pulmonary: Pulmonary: Asthma Musc/skel: Comments: mtz's syndrome Anesthetic Plan: ASA status: 2 Anesthesia: General Risk of > 500 ml blood loss (7ml/kg in children): No Meds/Allergies Current Medications: Current Medications Generic Name Dose Route Start Last Admin Trade Name Freq PRN Reason Stop Dose Admin Morphine Sulfate 2 mg 06/24/20 11:22 06/24/20 11:34 Morphine 4 Mg/Ml Sdv 1 Ml IVP 2 mg Q4H PRN Administration SEVERE PAIN PFSH Anesthesia PFSH: Medical History Left ureteral stone Nephrolithiasis Family History Family/Other Diabetes CAD (coronary artery disease) Social History Smoking and tobacco status: never smoked Alcohol intake: current Alcohol intake frequency: few times a month Marital status: Current occupational status: employed Current occupation: [employer] Female Reproductive History: Date of last menstrual period: 03/27/20 Data Anesthesia Other Labs: Laboratory Results - last 48 hr 12/07/20 11:20 POC Glucose 119 Cardiac Studies: No Data to Display
[2020-06-24 12:03] LABS: OR HCG Qualitative Urine Negative (Negative)
[2020-06-24] MEDS: fentaNYL 50 mcg/mL INJ 2mL 100 MCG IVP (12:38)
--- NOTE | 2020-06-24 12:40 | SUR.OPER ---
re medicated for flank pain.
--- NOTE | 2020-06-24 12:41 | P.HPUD_ITS ---
Surgery/Procedure H&P Update DATE OF PROCEDURE: June 24, 2020 DATE H&P PERFORMED: 06/24/20 H&P UPDATE INFORMATION: I have reviewed H&P completed within last 30 days, I have examined patient prior to procedure, No changes to prior documentation and H&P is in [facility] on date indicated CHANGES TO PREVIOUS DOCUMENTATION: I examined her this morning in my clinic. No changes have occurred. She is still in extreme pain from the stone. Having trouble controlling the symptoms preoperatively. PREOP DIAGNOSIS: Large left proximal ureteral stone, obstructing PLANNED PROCEDURE: Operation Date: 06/24/20 13:30 Proposed Procedures p ESWL [id number] 34814 N21.1(Left) - Alexander Vuong MD s Cystoscopy(Left) - Alexander Vuong MD s Ureteral Stent Placement(Left) - Alexander Vuong MD
[2020-06-24] MEDS: iohexol 300 mg/mL 50 mL Btl VAGINAL (13:11)
--- NOTE | 2020-06-24 13:49 | P.OP_ITS ---
Operative Report Date of procedure: June 24, 2020 Pre-op Diagnosis: Large left proximal ureteral stone, obstructing Post-op diagnosis: same Procedure Done: 1. Cystoscopy, left retrograde ureteropyelogram 2. Left ureteral stent placement 3. Extracorporeal shockwave lithotripsy to left ureteral/renal calculus Implants: 7 Uzbek by 24 cm double-pigtail stent without string Pathology: none sent Surgeon: Yevgeniy Power Lineworker: Lithotripsy Machine Maintenance Technician: Katie Anesthesia: General Estimated blood loss: Minimal Complications: None Findings: Stone migrated into the renal pelvis with contrast injection. Easily identified with maintenance of contrast in the collecting system via open-ended ureteral catheter with periodic reinjection. 2500 shocks administered with good change ' Condition: stable Disposition: PACU Brief History: She is a 34-year-old white female who I evaluated for the first time today after recent ER visit with severe left renal colicky pain and discovery of a large radiolucent stone in the left proximal ureter with obstructive changes. She was originally managed as outpatient with anticipation of ESWL today based on the size of the stone and low chance of any spontaneous passage. Her pain became quite severe today and she was scheduled to be admitted for outpatient surgery but possible to the hospital for pain control if it could not be managed adequately. ' Procedure: After urgent evaluation examination and obtaining of informed consent she was taken to the operating suite on 06/24/2020 where general anesthesia was administered without difficulty after appropriate timeout was performed, SCDs confirmed to be functioning, preoperative antibiotics administered, beta-renetta protocol confirmed. Prepped and draped in the usual sterile fashion in dorsolithotomy position paying careful attention to avoiding pressure points. The stone could not be seen on routine fluoroscopy. 21 Uzbek cystoscope with 30 degree lens was introduced into the urethral meatus and advanced into the bladder to videoscopy. The bladder was systematically examined and found to be within normal limits. 8 Uzbek cone-tip catheter was utilized for retrograde ureteropyelogram: Normal course and caliber of the ureter until the large filling defect consistent with a stone seen on CT scan was identified in the proximal ureter. There was minimal contrast initially able to be pushed past the stone but ultimately stone popped into the renal pelvis and was easily identified as outlined by the contrast. A flexible tip guidewire was then advanced up the left ureter curling in the upper pole calyx. An open-ended ureteral catheter was then advanced over the guidewire to just below the UPJ and the guidewire was removed. Contrast was then injected again outlining the stone clearly. A syringe with contrast was secured to the injectable port on the distal aspect of the ureteral catheter and left in place to maintain contrast in the collecting system. Shock head was then positioned posteriorly with biplanar fluoroscopy. Treatment was initiated intensity of 1 and advanced an intensity of 4. After about 300 shocks a several minute pause was conducted. There was some change but it was not dramatic. At 1200 shocks it was decided to switch to the anterior position of the shock head. Biplanar fluoroscopy was again utilized to maintain good focus. Change was fairly prompt at that point and by the completion the procedure was hard to see for sure that there was any substantial stone particles remaining. A total of 2500 shocks were administered. A flexible tip guidewire was then passed through the open-ended ureteral catheter up into the upper pole calyx, the open-ended ureteral catheter removed, the cystoscope backloaded over the guidewire and a 7 Uzbek by 24 cm double- pigtail stent was advanced over the guidewire through the cystoscope into appropriate position as confirmed via fluoroscopy and cystoscopy. The bladder was drained and the procedure was completed. She tolerated the procedure well without complications and was awakened in the operating room and returned to the recovery in stable condition. PLANS: 1. Maintain stent on outpatient basis 2. Follow-up in 2 weeks with a stone protocol CT scan to assess residual stone burden 3. Strain voids safe specimens sent for pathologic evaluation '
--- NOTE | 2020-06-24 15:51 | ANE.PACU2 ---
Inpatient post-anesthesia follow up: Airway intact: Yes Vital signs: Temperature 98 F Pulse Rate 77 Respiratory Rate 18 Blood Pressure 108/70 Pulse Oximetry 96 Oxygen Delivery Me thod Room Air Oxygen Flow Rate 8 Fraction of Inspir ed Oxygen Hydration adequate: No Nausea and vomiting: Yes (treated w/ zofran) Pain level: 3 Mental status: Baseline
== END 2020-06-24 16:21 | disposition home or self-care (01) ==
PROVIDERS: Anesthesiology; Visit Provider Urology
PROC: (CPT 50590; principal; 2020-06-24 13:30)
PROC: 0TJB8ZZ Inspection of Bladder, Via Natural or Artificial Opening Endoscopic (ICD-10-PCS; CPT 52000; 2020-06-24 13:30)
PROC: (CPT 50605; 2020-06-24 13:30)
DX: N20.1 Calculus of ureter (principal); J45.909 Unspecified asthma, uncomplicated
CPT/HCPCS: 50590; 52332; 12345; 36416; 81025; 82962; 84703; 96374; 96375; C2625; J0330; J0690; J1100; J2250; J2270; J2405; J2704; J2710; J3010; J3490; J7030; Q9967

== ENCOUNTER 2020-07-09 11:25 | Outpatient (CLI) | payer BC, SELFPAY ==
--- NOTE | 2020-07-09 12:30 | CT_ITS ---
WS: [id number] CT ABDOMEN AND PELVIS NONCONTRAST HISTORY: NEPHROLITHIASIS TECHNIQUE: Imaging performed through the abdomen and pelvis. Coronal and sagittal reformats are submi tted. All CT scans at [facility] use at least one of these dose optimization techniques: automated exposure control; mA and/or kV adjustment per patient size (includes targeted exams where d ose is matched to clinical indication); or iterative reconstruction. DLP: 1324.82 mGy.cm COMPARISON: 06/23/2020 Lower thorax: There are bilateral patchy subsegmental focal opacifications at the lung bases which ar e new since 06/23/2020. Liver: Mildly enlarged liver. No bile duct dilatation. Gallbladder: Contracted gallbladder. Pancreas: Normal size and attenuation. Normal pancreatic duct. No pancreatitis or mass. Spleen: Normal. Adrenal glands: Normal. No mass. Right kidney: Normal size kidney with multiple calcifications in the renal pelvis. No hydronephrosis. Largest calcification measures 5 mm. Left kidney: Multiple nonobstructing calcifications in the renal pelvis. Hydronephrosis and perinephr ic stranding seen on the prior exam has resolved. A double pigtail ureteral catheter is been placed s egovanna the prior study. The large calcification at the UP junction is no longer present. Double pigtail ureteral catheter in good position. Aorta: Normal abdominal aorta, no aneurysm or atherosclerosis. No free fluid, intraperitoneal air or significant lymphadenopathy. GI tract: Normal appendix. Appendix does contain calcification but there is no adjacent inflammation. No GI tract obstruction. Abdominal wall: Negative. No hernia. Pelvis: Normal. Osseous structures: Unremarkable. CT/CT kidney stone [id number] IMPRESSION: 1. Interval insertion of a double pigtail LEFT ureteral stent since 06/23/2020. 2. Resolved LEFT hydronephrosis. 3. Proximal LEFT ureteral calcification is no longer evident. 4. Bilateral nephrolithiasis, numerous calcifications in each renal pelvis.
== END 2020-07-09 11:26 | disposition home or self-care (01) ==
LOC: RAD 11:29
PROVIDERS: Visit Provider Urology
DX: N20.0 Calculus of kidney (principal); N20.1 Calculus of ureter; Z96.0 Presence of urogenital implants
CPT/HCPCS: 74176; 81003; 83036

== ENCOUNTER → 2020-07-25 08:49 | Outpatient (BNVA) | payer BC, SELFPAY | PROVIDERS: Visit Provider Nurse Practitioner | DX: M25.571 Pain in right ankle and joints of right foot (principal) | CPT/HCPCS: 73610 ==

== ENCOUNTER 2021-02-27 08:06 | Outpatient (CLI) | payer OTHER, SELFPAY ==
--- NOTE | 2021-02-27 08:00 | US_ITS ---
WS: [id number] ULTRASOUND RENAL TECHNIQUE: Ultrasound examination of both kidneys. CLINICAL INFORMATION: ureteral stone COMPARISON: CT July 09, 2020 FINDINGS: Mild bilateral renal cortical atrophy. RIGHT: Right kidney is normal in size and appearance. Echogenicity: Normal. Cortical thickness: 0.8 cm; Normal. Hydronephrosis: None. Perinephric fluid: None. Right kidney measures: 10.6 cm x 3.9 cm x 4.0 cm. LEFT: Left kidney is normal in size and appearance. Echogenicity: Normal. Cortical thickness: 0.8 cm; Normal. Hydronephrosis: None. Perinephric fluid: None. Left kidney measures: 10.1 cm x 3.5 cm x 3.9 cm. Normal visualized aorta. Normal bladder. US/US renal BI* [id number] IMPRESSION: 1. No hydronephrosis in either kidney. Mild bilateral renal cortical atrophy. 2. Normal bladder. 3. Tiny punctate calyceal tip calculi seen on the prior CT not well seen on th is study.
--- NOTE | 2021-02-27 08:45 | XR_ITS ---
WS: [id number] KUB, AP view, 02/27/2021 Clinical Data: LEFT URETERAL STONE Comparison: KUB, 06/24/2020. Findings: No abnormal intraabdominal masses or calcifications are seen. There is no dilatated small bowel or ev idence of obstruction. Colon gas obscures minimal detail over both kidneys. XR/XR KUB [id number] Impression: Negative KUB.
== END 2021-02-27 08:07 | disposition home or self-care (01) ==
LOC: RAD 08:10
PROVIDERS: Visit Provider Urology
DX: N20.0 Calculus of kidney (principal); N20.1 Calculus of ureter; Z96.0 Presence of urogenital implants
CPT/HCPCS: 74018; 76770; 81003

== ENCOUNTER → 2021-10-07 09:01 | Outpatient (BNVA) | payer OTHER, SELFPAY | PROVIDERS: PCP Nurse Practitioner Family; Visit Provider Nurse Practitioner Family | DX: G43.709 Chronic migraine without aura, not intractable, without status migrainosus (principal); J30.9 Allergic rhinitis, unspecified; I10 Essential (primary) hypertension; N20.9 Urinary calculus, unspecified; Q96.9 Turner's syndrome, unspecified; M79.89 Other specified soft tissue disorders | CPT/HCPCS: 80053; 80061; 84443; 85025 ==

== ENCOUNTER 2022-03-10 15:03 | Outpatient (CLI) | payer OTHER, SELFPAY ==
--- NOTE | 2022-03-10 15:15 | XR_ITS ---
WS: [id number] KUB, AP view, 03/10/2022 Clinical Data: NEPHROLITHIASIS Comparison: KUB, 02/27/2021. Findings: No abnormal intraabdominal masses or calcifications are seen. There is no dilatated small bowel or ev idence of obstruction. There is a minimal amount of fecal material in the descending colon. XR/XR KUB [id number] Impression: Negative KUB.
== END 2022-03-10 15:04 | disposition home or self-care (01) ==
LOC: RAD 15:06
PROVIDERS: PCP Nurse Practitioner Family; Visit Provider Urology
DX: N20.0 Calculus of kidney (principal)
CPT/HCPCS: 74018; 81003

== ENCOUNTER → 2022-04-10 13:27 | Outpatient (BNVA) | payer OTHER, SELFPAY | PROVIDERS: PCP Nurse Practitioner Family; Visit Provider Nurse Practitioner Family | DX: R05.9 Cough, unspecified (principal); G43.709 Chronic migraine without aura, not intractable, without status migrainosus; J30.9 Allergic rhinitis, unspecified; I10 Essential (primary) hypertension; J98.8 Other specified respiratory disorders; N20.9 Urinary calculus, unspecified; T78.40XA Allergy, unspecified, initial encounter; Q96.9 Turner's syndrome, unspecified | CPT/HCPCS: 87426 ==

== ENCOUNTER → 2022-06-16 08:47 | Outpatient (BNVA) | payer OTHER, SELFPAY | PROVIDERS: PCP Nurse Practitioner Family; Visit Provider Nurse Practitioner Family | DX: R20.2 Paresthesia of skin (principal); I10 Essential (primary) hypertension | CPT/HCPCS: 80053; 80061; 82607; 84443; 85025 ==

== ENCOUNTER → 2022-09-01 10:56 | Outpatient (BNVA) | payer OTHER, SELFPAY | PROVIDERS: PCP Nurse Practitioner Family; Visit Provider Nurse Practitioner Family | DX: B37.31 Acute candidiasis of vulva and vagina (principal); R30.0 Dysuria; R05.9 Cough, unspecified; J98.8 Other specified respiratory disorders | CPT/HCPCS: 81003; 87086; 87491; 87591; 87661 ==

== ENCOUNTER → 2023-01-28 09:22 | Outpatient (BNVA) | payer OTHER, SELFPAY | PROVIDERS: PCP Nurse Practitioner Family; Visit Provider Nurse Practitioner Family | DX: I10 Essential (primary) hypertension (principal); R73.9 Hyperglycemia, unspecified | CPT/HCPCS: 80053; 80061; 83036; 84443; 85025 ==

== ENCOUNTER → 2023-05-20 09:25 | Outpatient (BNVA) | payer OTHER, SELFPAY | PROVIDERS: PCP Nurse Practitioner Family; Visit Provider Nurse Practitioner Family | DX: I10 Essential (primary) hypertension (principal); R73.9 Hyperglycemia, unspecified; R05.9 Cough, unspecified; M79.671 Pain in right foot; M79.672 Pain in left foot; M79.89 Other specified soft tissue disorders; R20.2 Paresthesia of skin; J30.9 Allergic rhinitis, unspecified; G43.709 Chronic migraine without aura, not intractable, without status migrainosus | CPT/HCPCS: 80053; 80061; 83036; 83721; 84443; 85025 ==

== ENCOUNTER → 2023-06-21 15:34 | Outpatient (BNVA) | payer OTHER, SELFPAY | PROVIDERS: PCP Nurse Practitioner Family; Visit Provider Podiatrist Foot & Ankle Surgery | DX: M25.571 Pain in right ankle and joints of right foot; Q74.2 Other congenital malformations of lower limb(s), including pelvic girdle; M76.821 Posterior tibial tendinitis, right leg | CPT/HCPCS: 73600; 73630 ==

== ENCOUNTER 2023-08-28 08:25 | Emergency (ER) | payer BC, SELFPAY ==
[2023-08-28 08:30] VITALS: BP 126/83; PULSE 108; RESP 16; TEMP 36.7; O2SAT 97
--- NOTE | 2023-08-28 09:13 | PC.NURSE ---
assumed pt care at 0900 from VLADIMIR Cortes
--- NOTE | 2023-08-28 09:44 | ED_ITS ---
HPI - Animal Bite General: Chief Complaint: Animal Bite Stated Complaint: DOG BITE LEFT FOREARM Time Seen by Provider: 08/28/23 08:30 Source: patient Mode of arrival: ambulatory History of Present Illness: 38-year-old female arrives to the emerge ncy room ambulatory complaining of a dog bite to her left forearm. Dog is unknown to her no markings or tags she does not able to quarantine the animal. She has a abrasion and a full-thickness laceration left forearm she is unsure of last tetanus. The animal had been struck in the road when she was attempting along with another person to move the dog off the road. complaint: animal bite Onset (ago): minute(s) Animal: dog Description of animal: unknown animal Mechanism: bite Location - Extremities: Left: forearm Context: provoked (Injured animal) Related Data: Patient tetanus UTD: No PFSH ED PFSH: Medical History Essential hypertension Turners syndrome Asthma Left ureteral stone Nephrolithiasis Surgical History H/O oral surgery History of renal stent Family History Family/Other Diabetes CAD (coronary artery disease) Other Hypertension Social History Smoking and tobacco/nicotine status: never used tobacco/nicotine Second hand smoke exposure: No Alcohol intake: current Alcohol intake frequency: few times a month Substance/Drug Use: unknown Adopted: No Caregiver/support person: No Lives independently: Yes Household members: significant other and family Housing: House Marital status: Number of children: 0 service: No Current occupational status: employed Current occupation: [employer] Do you think of yourself as: Straight/Heterosexual Current gender identity: Female Physical Exam Narrative: EXAM NARRATIVE: Volar surface of the forearm there is a 1 inch laceration (2.5 cm) medially laterally there is an abrasion is partial-thickness no active bleeding. Laceration is gaping Procedures Laceration Laceration 1: Site: upper extremity Side (If applicable): left Size (cm): 2.5 Description: linear Depth: simple, single layer Local Anesthetic: lidocaine 1% and with epi Amount of anesthesia used (mL): 4 Pre-repair: irrigated extensively Skin layer closed with: nylon Size (cm): 5-0 Number of sutures: 3 Technique: simple, interrupted Course Vital Signs: Vital signs: Vital Signs Temperature 98.0 F 08/28/23 08:30 Pulse Rate 108 H 08/28/23 08:30 Respiratory Rate 16 08/28/23 08:30 Blood Pressure 126/83 08/28/23 08:30 Pulse Oximetry 97 08/28/23 08:30 Oxygen Delivery Me thod Room Air 08/28/23 08:30 MDM - Animal Bite Medical Decision Making Wound anesthetized 1% lidocaine with epinephrine. Wound cleansed after there is good jose de jesus noted on the scan patient still reported pain however with needle testing was unable to appreciate needle prick in the area. Based on this is felt anesthesia was adequate given significant jose de jesus around the wound from the lidocaine with epi and patient is unable to appreciate needle prick adjacent to the wound. Wound is then closed patient continues to complain of pain with light dabbing at the wound and with irrigation with any touch. Wound care instructions given apply topical antibiotic ointment Augmentin twice daily for 5 days tetanus updated rabies immunoglobulin given as well as a first rabies vaccine in 1 rabies schedule given to patient as well. Differential Diagnosis Likely dog bite No radiology studies performed this visit Discharge Plan Discharge Patient Disposition: Home Clinical Impression: Dog bite, Laceration of left forearm Condition: Stable Prescriptions: New mupirocin 2 % ointment 1 applic topical BID Qty: 15 0RF amoxicillin-pot clavulanate 875-125 mg tablet 1 tab PO BID Qty: 10 0RF No Action albuterol sulfate [Ventolin HFA] 90 mcg/actuation HFA aerosol inhaler 2 puff inhalation Q6H PRN (Reason: shortness of breath or wheezing) Qty: 8.5 0RF estradiol 1 mg tablet 1 mg PO .COMPLEX Rx Instructions: 1 mg PO; progesterone micronized 200 mg capsule 200 mg PO .hs Rx Instructions: first 12 days of the month fluticasone propionate [Flonase Allergy Relief] 50 mcg/actuation spray,suspension 2 spray intranasal DAILY Qty: 15.8 5RF Rx Instructions: administer into each nostril potassium citrate 10 mEq (1,080 mg) tablet extended release 10 meq PO BID Qty: 180 3RF promethazine-DM 6.25-15 mg/5 mL syrup 5 - 10 ml PO Q6H PRN (Reason: cough) Qty: 240 0RF lisinopril 20 mg tablet 20 mg PO DAILY Qty: 30 5RF cetirizine [Zyrtec] 10 mg tablet 10 mg PO DAILY Qty: 30 5RF amitriptyline 25 mg tablet 25 mg PO .HS Qty: 30 5RF allopurinol 300 mg tablet 300 mg PO DAILY Qty: 30 5RF Rx Instructions: Uric acid urolithiasis terconazole 0.4 % cream 1 appful vaginal .qhs 7 Days Qty: 45 0RF fluconazole [Diflucan] 150 mg tablet 150 mg PO .q3days Qty: 2 0RF Rx Instructions: may repeat in 72 hours albuterol sulfate [ProAir HFA] 90 mcg/actuation HFA aerosol inhaler 2 puff inhalation QID PRN (Reason: shortness of breath or wheezing) Qty: 6.7 2RF pravastatin 20 mg tablet 20 mg PO DAILY Qty: 30 2RF Discharge Orders: Discharge ED (Routine); Ordered 08/28/23 Ordered By: Rc Acosta Referrals: Adeline Cobos FNP-C [Primary Care Provider] - Discharge Diet: Usual diet Discharge Activity: Increase activity as tolerated Patient Instructions: Opioid Safety, Pain Management Activity Restrictions/Additional Instructions: Thank you for choosing [facility] for your healthcare needs today. Please realize this is an emergency room and that we are providing you with a medical screening exam and this may not be complete and all inclusive of all the testing and or work up that you may need to determine your ailment or severity of your illness. It is very important that you follow up as instructed or that you return to the Emergency Department should you have concerns or if your condition changes or worsens in any way. You are seen today for dog bite you are given initial rabies immunoglobulin and vaccine here. Complete the course and outpatients as per the schedule given to at the time of discharge. Sutures were placed in the full-thickness laceration these should be removed in 7 days. Oral antibiotics 1 pill twice daily for 5 days and apply topical antibiotic ointment wound and dressed the wound once daily. Return for signs of infection such as redness or drainage Coding Level of Care Code ED [employer] Operator for Xavier Holly
[2023-08-28] MEDS: rabies IG 300 unit/mL SDV 1 mL 1800 UNIT INFILTRATI (09:50)
[2023-08-28] MEDS: rabies vaccine 2.5 unit SDV IM (09:50)
[2023-08-28] MEDS: tetanus-diphtheria tox (adult) 0.5 mL SYRINGE IM (09:52)
[2023-08-28 10:28] VITALS: BP 101/58; PULSE 113; O2SAT 93
== END 2023-08-28 10:11 | disposition home or self-care (01) ==
PROVIDERS: Emergency Provider Family Medicine; PCP Nurse Practitioner Family
DX: S51.852A Open bite of left forearm, initial encounter (principal); W54.0XXA Bitten by dog, initial encounter; I10 Essential (primary) hypertension; Q96.9 Turner's syndrome, unspecified; Z20.3 Contact with and (suspected) exposure to rabies; Z29.14 Encounter for prophylactic rabies immune globulin; Z23 Encounter for immunization
CPT/HCPCS: 90375; 90471; 90675; 90714; 99283

== ENCOUNTER 2023-09-16 08:00 | Oncology outpatient (recurring) (ONCR) | payer BC, SELFPAY ==
[2023-08-31 08:17] VITALS: BP 116/66; PULSE 83; RESP 16; TEMP 36.6; O2SAT 98
[2023-08-31] MEDS: rabies vaccine 2.5 unit SDV IM (08:39)
[2023-08-31 09:19] VITALS: BP 118/78; PULSE 94; RESP 14; TEMP 36; O2SAT 94
[2023-09-08 15:53] VITALS: BP 113/75; PULSE 90; RESP 16; TEMP 37.3; O2SAT 90
[2023-09-08] MEDS: rabies vaccine 2.5 unit SDV IM (16:01)
[2023-09-16] MEDS: rabies vaccine 2.5 unit SDV IM (07:37)
[2023-09-16 07:39] VITALS: BP 117/64; PULSE 88; TEMP 36.1; O2SAT 99
== END 2023-09-16 23:59 | disposition home or self-care (01) ==
PROVIDERS: PCP Nurse Practitioner Family; Visit Provider Nurse Practitioner Family
DX: Z53.9 Procedure and treatment not carried out, unspecified reason (principal); Z23 Encounter for immunization; Z20.3 Contact with and (suspected) exposure to rabies; S51.852A Open bite of left forearm, initial encounter; W54.0XXA Bitten by dog, initial encounter
CPT/HCPCS: 90471; 90675

== ENCOUNTER → 2023-12-17 08:50 | Outpatient (BNVA) | payer BC, SELFPAY | PROVIDERS: PCP Nurse Practitioner Family; Visit Provider Nurse Practitioner Family | DX: I10 Essential (primary) hypertension (principal); R73.9 Hyperglycemia, unspecified; N20.9 Urinary calculus, unspecified; Q96.9 Turner's syndrome, unspecified; M79.671 Pain in right foot; M79.672 Pain in left foot; M79.89 Other specified soft tissue disorders; R20.2 Paresthesia of skin | CPT/HCPCS: 80053; 80061; 83036; 83721; 84443; 85025 ==

== ENCOUNTER 2024-02-25 07:00 | Outpatient (CLI) | payer BC, SELFPAY ==
--- NOTE | 2024-02-25 07:20 | USCV_ITS ---
Johnny Joyner Age: 38 Gender: F : 1985 Exam Date: 02/25/2024 07:27 Ordering Phys: Nicky John Technologist: Amando Sharif Exam Location: [facility] [place] Indication: mtz syndrome BP: 116 / 80 HR: 82 Rhythm: Sinus Technical Quality: Adequate MEASUREMENTS (Male / Female) Normal Values 2D ECHO LV Diastolic Diameter PLAX 3.2 cm 4.2 - 5.9 / 3.9 - 5.3 cm IVS Diastolic Thickness 1.3 cm 0.6 - 1.0 / 0.6 - 0.9 cm IVS Systolic Thickness 2.0 cm LVPW Diastolic Thickness 1.1 cm 0.6 - 1.0 / 0.6 - 0.9 cm LVPW Systolic Thickness 1.6 cm LVOT Diameter 2.0 cm LV Ejection Fraction 2D Teich 66.2 % LV Ejection Fraction MOD 4C 62.5 % LV Ejection Fraction MOD 2C 58.3 % LV Ejection Fraction 2C AL 57.0 % LA Diameter 3.1 cm RA Systolic Volume 4C AL 19.5 ml RA Systolic Volume 4C MOD 19.7 ml LA Sys Volume AL 21.2 cm cubed LA Sys Volume Index AL 11.0 cm cubed/m squared Aorta at Sinotubular Diameter 2.3 cm IVC Diameter 1.4 cm M-MODE LA Ao Ratio MM 1.2 AV Cusp Separation MM 2.0 cm DOPPLER AV Peak Velocity 102.0 cm/s LVOT Peak Velocity 72.0 cm/s AV Area Cont Eq vti 2.3 cm squared AV Area Cont Eq pk 2.2 cm squared MV Peak Velocity 80.0 cm/s MV Area PHT 6.3 cm squared Mitral E to A Ratio 1.1 TV Peak Velocity 166.0 cm/s TR Peak Velocity 233.0 cm/s TR Peak Gradient 21.7 mmHg TR Mean Velocity 194.0 cm/s TR Mean Gradient 15.6 mmHg TR Velocity Time Integral 55.7 cm PV Peak Velocity 101.0 cm/s RV Ejection Time 0.3 s FINDINGS Left Ventricle Left ventricle is normal in size. LV systolic function is normal with EF 60-65 %. No regional wall motion abnormalities are seen. Right Ventricle Normal in size and function Right Atrium Normal in size Left Atrium Normal in size Mitral Valve Structurally normal mitral valve. Mild mitral regurgitation Aortic Valve Structurally normal aortic valve. No significant stenosis or regurgitation. Tricuspid Valve Mild tricuspid regurgitation. Pulmonary artery systolic pressure normal Pulmonic Valve Not well visualized Pericardium Normal Aorta Normal in size IVC Appears to be normal. CONCLUSIONS LV systolic function is normal with the EF of 60 to 65%. Mild mitral regurgitation Mild tricuspid regurgitation Compared to prior echocardiogram from 2014, no significant changes seen Kurt Joyner MD (Electronically Signed) Final Date: 10 March 2024 21:11 S
== END 2024-02-25 07:01 | disposition home or self-care (01) ==
PROVIDERS: PCP Nurse Practitioner Family; Visit Provider Internal Medicine Endocrinology, Diabetes & Metabolism
DX: Q96.0 Karyotype 45, X (principal); N91.0 Primary amenorrhea; R73.03 Prediabetes; E78.1 Pure hyperglyceridemia
CPT/HCPCS: 93306

== ENCOUNTER 2024-05-19 19:08 | Emergency (ER) | payer BC, SELFPAY ==
[2024-05-19 19:17] VITALS: BP 118/85; PULSE 101; RESP 18; TEMP 36.6; O2SAT 99; BMI 32.9
--- NOTE | 2024-05-19 19:24 | CTR_ITS ---
PROCEDURE INFORMATION: Exam: CT Head Without Contrast Exam date and time: 05/19/2024 7:40 PM Age: 38 years old Clinical indication: Weakness, extremity; Bilateral; Patient HX: Sudden onset of lethargy and numbness to all extremities while driving to work. TECHNIQUE: Imaging protocol: Computed tomography of the head without contrast. Radiation optimization: All CT scans at this facility use at least one of these dose optimization techniques: automated exposure control; mA and/or kV adjustment per patient size (includes targeted exams where dose is matched to clinical indication); or iterative reconstruction. COMPARISON: CT Head wo IV contrast* [id number] 12/20/2014 11:18 PM RADIATION DOSE METRICS: Total DLP (mGy-cm): 1042.74 FINDINGS: Brain: The brain is unremarkable. There is no mass effect or significant white matter disease. There is no acute intracranial hemorrhage. Cerebral ventricles: There is no significant ventricular dilation. The basal cisterns are unremarkable. Paranasal sinuses: The paranasal sinuses are clear. Mastoid air cells: The mastoid air cells are clear. Bones: The calvarium is intact. Soft tissues: The visible extracranial soft tissues are unremarkable. CT/CT head wo con* [id number] IMPRESSION: No acute intracranial abnormality.
[2024-05-19] MEDS: sodium chloride 0.9% 1,000 ML 999 ML IV (19:36)
[2024-05-19 19:44] LABS: Basophils # 0.1 10^3/uL (0.0-0.1); Basophils % 0.9 %; Eosinophils # 0.2 10^3/uL (0.0-0.8); Eosinophils % 2.5 %; Hematocrit 39.4 % (36-47); Lymphocytes # 3.4 10^3/uL (0.8-4.8); Lymphocytes % 44.7 %; Mean Corpuscular HGB Conc 33.8 g/dL (30-55); Mean Corpuscular Hemoglobin 30.1 pg (27-33); Mean Corpuscular Volume 89.1 fl (85-98); Mean Platelet Volume 9.6 fL (7.4-10.4); Monocytes # 0.5 10^3/uL (0.2-0.9); Monocytes % 7.1 %; Neutrophils # 3.37 10^3/uL (1.8-7.7); Neutrophils % 44.7 %; Nucleated Red Blood Cells % 0 %; Platelet Count 285 10^3/cmm (157-399); Red Blood Count 4.42 10^6/uL (3.85-5.65); White Blood Count 7.56 10^3/uL (3.29-11.43)
[2024-05-19 20:08] LABS: Alanine Aminotransferase 41 U/L (0-33); Albumin Level 4.4 g/dL (3.5-5.2); Alkaline Phosphatase 96 U/L (35-105); Anion Gap 17.1 (5-19); Aspartate Amino Transferase 31 U/L (0-32); Blood Urea Nitrogen 12 mg/dL (6-20); Carbon Dioxide 23 mmol/L (22-29); Chloride 100 mmol/L (98-107); Creatinine Clr Calc Pharmacy 83.9154; Glomerular Filtration Rate 70.1 mL/min (90-130); Glucose 170 mg/dL (65-115); Osmolality Calculated 286 mOsm/kg (285-295); Potassium 4.1 mmol/L (3.5-5.1); Sodium 136 mmol/L (136-145); Total Bilirubin 0.5 mg/dL (0.15-1.2); Total Protein 6.4 g/dL (6.6-8.7)
[2024-05-19 20:09] LABS: Alcohol Level < 10 mg/dL (0-10); HCG, Serum Qual Negative (Negative)
[2024-05-19 21:40] VITALS: BP 93/67; PULSE 88; RESP 16; O2SAT 99
[2024-05-19 21:42] LABS: Bacteria Urine 1+ /hpf; Hyaline Casts Urine 1.21 /lpf; RBC Urine 0-2 /hpf (0-2)
[2024-05-19 21:45] LABS: Add Urine Microscopic? YES; Bilirubin Urine Negative (Negative); Blood Urine Non-haemolysed trace (Negative); Glucose Urine UA Negative (Normal); Ketones Urine Negative (Negative); Leukocyte Esterase Urine Negative (Negative); Nitrate Urine Negative (Negative); Protein Urine Negative (Negative); Specific Gravity, Urine 1.013 (1.005-1.030); Urine Appearance Cloudy (CLEAR); Urine Color Yellow (Yellow); Urobilinogen Urine 0.2 mg/dL (Negative); pH Urine 5.5 (5-7)
[2024-05-19 21:46] LABS: Amphetamines Screen Urine Negative (Negative); Barbiturates Screen Urine Negative (Negative); Benzodiazepines Screen Urine Negative (Negative); Cocaine Screen Urine Negative (Negative); Opiate Screen Urine Negative (Negative); PCP Screen Urine Negative (Negative); THC Screen Urine Negative (Negative)
[2024-05-19 22:00] VITALS: BP 113/66; PULSE 97; RESP 16; O2SAT 98
--- NOTE | 2024-05-19 22:22 | ED_ITS ---
HPI - Weakness 2 General: Chief complaint: Weakness Stated complaint: NUMBNESS Time Seen by Provider: 05/19/24 19:17 History of Present Illness: This patient is a 38-year-old white female who presents to the emergency department with sudden onset of feeling fuzzy . She is feeling numb all over. She is also feeling dizzy. She is not having pain anywhere. No fever. Symptoms started 30 minutes prior to arrival. Review of Systems 2 General: Reports: 10 or more systems reviewed and unremarkable except in HPI and below Neuro: Reports: numbness in extremities, dizziness and vertigo PFSH ED 2 PFSH: Medical History Essential hypertension Turners syndrome Asthma Left ureteral stone Nephrolithiasis Surgical History H/O oral surgery History of renal stent Family History Family/Other Diabetes CAD (coronary artery disease) Other Hypertension Social History Smoking and tobacco/nicotine status: never used tobacco/nicotine Second hand smoke exposure: No Alcohol intake: current Alcohol intake frequency: few times a month Substance/Drug Use: unknown Adopted: No Caregiver/support person: No Lives independently: Yes Household members: significant other and family Housing: House Marital status: Number of children: 0 service: No Current occupational status: employed Current occupation: [employer] Do you think of yourself as: Straight/Heterosexual Current gender identity: Female Physical Exam 2 Const: COMMON NORMALS: no acute distress, patient oriented x3 and no limitations GENERAL APPEARANCE: cooperative and comfortable HENMT: COMMON NORMALS: normocephalic, atraumatic, Normal nasal mucous membranes and turbinates present, moist oral mucous membranes and oropharynx normal HEAD & SCALP: normal to inspection, normocephalic and atraumatic F YUMIKO & SINUS: normal facial exam NOSE: Normal nasal mucous membranes and turbinates present Eye: COMMON NORMALS: Equal, round and reactive pupils present, EOMs intact bilaterally and conjunctivae normal GENERAL EYE: appearance normal, both eyes and all related structures CONJUNCTIVA: Yes conjunctivae normal PUPIL: Yes Equal, round and reactive pupils present Neck/C-Spine: COMMON NORMALS: supple and no JVD Chest: COMMONS NORMALS: normal inspection of the chest Resp: COMMON NORMALS: normal respiratory effort and clear to auscultation bilaterally AUSCULTATION: clear to auscultation bilaterally Cardio: COMMON NORMALS: no JVD, regular rate, regular rhythm, No gallops present (Cardio), No murmurs present (Cardio) and No rub (Cardio) RATE: r egular rate RHYTHM: regular rhythm GI: COMMON NORMALS: Normal to inspection, nondistended, normoactive bowel sounds present, Soft to palpation and non-tender AUSCULTATION: Yes normoactive bowel sounds PALPATION: Yes Soft to palpation : COMMON NORMALS: Yes no CVA tenderness BLADDER/KIDNEY EXAM: Yes no CVA tenderness Back/Pelvis: COMMON NORMALS: no CVA tenderness and thoracic and lumbar spine normal to inspection Extremity: COMMON NORMALS: normal to inspection Neuro: COMMON NORMALS: patient oriented x3 and CN's II-XII intact bilaterally Psych: COMMON NORMALS: mental status grossly normal, Normal thought process present and cooperative THOUGHT PROCESS: Normal thought process present Skin: COMMON NORMALS: no rashes or lesions noted, turgor normal and no jaundice GENERAL SKIN EXAM: no rashes or lesions noted and turgor normal Course 2 Vital Signs: Vital signs: Vital Signs Temperature 97.8 F 05/19/24 19:17 Pulse Rate 97 05/19/24 22:00 Respiratory Rate 16 05/19/24 22:00 Blood Pressure 113/66 05/19/24 22:00 Pulse Oximetry 98 05/19/24 22:00 Oxygen Delivery Me thod Room Air 05/19/24 22:00 MDM - Weakness Medical Decision Making Head CT was read by the radiologist as normal. CBC was normal. CMP revealed a blood sugar of 170. test was negative. Blood alcohol was negative. Urine analysis is consistent with a urinary tract infection. Urine drug screen was negative. Patient was placed on ciprofloxacin and meclizine was given her first doses in the emergency department. Recommended she follow-up with her primary care provider next week for recheck. She was discharged in stable condition. Lab Data 05/19/24 19:38 05/19/24 19:[address] 05/19/24 19:24 IMPRESSION: No acute intracranial abnormality. Laboratory Results WBC 7.56 10^3/uL (3.29-11.43) 05/19/24 19:38 RBC 4.42 10^6/uL (3.85-5.65) 05/19/24 19:38 Hgb 13.30 g/dL (11.27-16.99) 05/19/24 19:38 Hct 39.4 % (36-47) 05/19/24 19:38 MCV 89.1 fl (85-98) 05/19/24 19:38 MCH 30.1 pg (27-33) 05/19/24 19:38 MCHC 33.8 g/dL (30-55) 05/19/24 19:38 RDW 12.0 % (12.1-15.1) L 05/19/24 19:38 Plt Count 285 10^3/cmm (157-399) 05/19/24 19:38 MPV 9.6 fL (7.4-10.4) 05/19/24 19:38 Neut % (Auto) 44.7 % 05/19/24 19:38 Lymph % (Auto) 44.7 % 05/19/24 19:38 [place] % (Auto) 7.1 % 05/19/24 19:38 Eos % (Auto) 2.5 % 05/19/24 19:38 Baso % (Auto) 0.9 % 05/19/24 19:38 Neut # (Auto) 3.37 10^3/uL (1.8-7.7) 05/19/24 19:38 Lymph # (Auto) 3.4 10^3/uL (0.8-4.8) 05/19/24 19:38 [place] # (Auto) 0.5 10^3/uL (0.2-0.9) 05/19/24 19:38 Eos # (Auto) 0.2 10^3/uL (0.0-0.8) 05/19/24 19:38 Baso # (Auto) 0.1 10^3/uL (0.0-0.1) 05/19/24 19:38 Nucleated RBC % (auto) 0 % 05/19/24 19:38 Nucleated RBCs # 0.0 /100WBC 05/19/24 19:38 Sodium 136 mmol/L (136-145) 05/19/24 19:38 Potassium 4.1 mmol/L (3.5-5.1) 05/19/24 19:38 Chloride 100 mmol/L (98-107) 05/19/24 19:38 Carbon Dioxide 23 mmol/L (22-29) 05/19/24 19:38 Anion Gap 17.1 (5-19) 05/19/24 19:38 BUN 12 mg/dL (6-20) 05/19/24 19:38 Creatinine 0.9 mg/dL (0.5-0.9) 05/19/24 19:38 GFR Calculation 70.1 mL/min (90-130) L 05/19/24 19:38 Glucose 170 mg/dL (65-115) H 05/19/24 19:38 Calculated Osmolality 286 mOsm/kg (285-295) 05/19/24 19:38 Calcium 9.0 mg/dL (8.5-10.5) 05/19/24 19:38 Total Bilirubin 0.5 mg/dL (0.15-1.2) 05/19/24 19:38 AST 31 U/L (0-32) 05/19/24 19:38 ALT 41 U/L (0-33) H 05/19/24 19:38 Alkaline Phosphatase 96 U/L (35-105) 05/19/24 19:38 Total Protein 6.4 g/dL (6.6-8.7) L 05/19/24 19:38 Albumin 4.4 g/dL (3.5-5.2) 05/19/24 19:38 Globulin 2.0 g/dL (1.3-4.6) 05/19/24 19:38 HCG, Qual Negative (Negative) 05/19/24 19:38 Urine Color Yellow (Yellow) 05/19/24 20:51 Urine Appearance Cloudy (CLEAR) A 05/19/24 20:51 Urine pH 5.5 (5-7) 05/19/24 20:51 Ur Specific [place] 1.013 (1.005-1.030) 05/19/24 20:51 Urine Protein Negative (Negative) 05/19/24 20:51 Urine Glucose (UA) Negative (Normal) 05/19/24 20:51 Urine Ketones Negative (Negative) 05/19/24 20:51 Urine Blood Non-haemolysed trace (Negative) 05/19/24 20:51 Urine Nitrate Negative (Negative) 05/19/24 20:51 Urine Bilirubin Negative (Negative) 05/19/24 20:51 Urine Urobilinogen 0.2 mg/dL (Negative) 05/19/24 20:51 Ur Leukocyte Esterase Negative (Negative) 05/19/24 20:51 Urine RBC 0-2 /hpf (0-2) 05/19/24 20:51 Urine WBC 6-10 /hpf (0-5) 05/19/24 20:51 Ur Squamous Epith Cells 11-20 /hpf (0-5) 05/19/24 20:51 Amorphous Sediment Not Reportable 05/19/24 20:51 Urine Bacteria 1+ /hpf (NONE) H 05/19/24 20:51 Hyaline Casts 1.21 /lpf 05/19/24 20:51 Urine Opiates Screen Negative ng/mL (Negative) 05/19/24 20:51 Ur Barbiturates Screen Negative ng/mL (Negative) 05/19/24 20:51 Ur Phencyclidine Scrn Negative ng/mL (Negative) 05/19/24 20:51 Ur Amphetamines Screen Negative ng/mL (Negative) 05/19/24 20:51 U Benzodiazepines Scrn Negative ng/mL (Negative) 05/19/24 20:51 Urine Cocaine Screen Negative ng/mL (Negative) 05/19/24 20:51 U Marijuana (THC) Screen Negative ng/mL (Negative) 05/19/24 20:51 Ethyl Alcohol < 10 mg/dL (0-10) 05/19/24 19:38 All radiology interpretation(s) finalized by discharge Discharge Plan Discharge Patient Disposition: Home Clinical Impression: Vertigo UTI (urinary tract infection) Qualifiers: Urinary tract infection type: acute cystitis Hematuria presence: without hematuria Qualified Code(s): N30.00 - Acute cystitis without hematuria Condition: Stable Prescriptions: New ciprofloxacin HCl [Cipro] 500 mg tablet 500 mg PO BID Qty: 20 0RF meclizine 25 mg tablet 25 mg PO TID PRN (Reason: dizziness) Qty: 30 0RF No Action albuterol sulfate [Ventolin HFA] 90 mcg/actuation HFA aerosol inhaler 2 puff inhalation Q6H PRN (Reason: shortness of breath or wheezing) Qty: 8.5 0RF estradiol 1 mg tablet 1 mg PO .COMPLEX Rx Instructions: 1 mg PO; progesterone micronized 200 mg capsule 200 mg PO .hs Rx Instructions: first 12 days of the month fluticasone propionate [Flonase Allergy Relief] 50 mcg/actuation spray,suspension 2 spray intranasal DAILY Qty: 15.8 5RF Rx Instructions: administer into each nostril potassium citrate 10 mEq (1,080 mg) tablet extended release 10 meq PO BID Qty: 180 3RF terconazole 0.4 % cream 1 appful vaginal .qhs 7 Days Qty: 45 0RF fluconazole [Diflucan] 150 mg tablet 150 mg PO .q3days Qty: 2 0RF Rx Instructions: may repeat in 72 hours albuterol sulfate [ProAir HFA] 90 mcg/actuation HFA aerosol inhaler 2 puff inhalation QID PRN (Reason: shortness of breath or wheezing) Qty: 6.7 2RF promethazine-DM 6.25-15 mg/5 mL syrup 5 - 10 ml PO Q6H PRN (Reason: cough) Qty: 240 0RF lisinopril 20 mg tablet 20 mg PO DAILY Qty: 30 5RF cetirizine [Zyrtec] 10 mg tablet 10 mg PO DAILY Qty: 30 5RF amitriptyline 25 mg tablet 25 mg PO .HS Qty: 30 5RF allopurinol 300 mg tablet 300 mg PO DAILY Qty: 30 5RF Rx Instructions: Uric acid urolithiasis pravastatin 40 mg tablet 40 mg PO DAILY Qty: 30 2RF mupirocin 2 % ointment 1 applic topical BID Qty: 15 0RF amoxicillin-pot clavulanate 875-125 mg tablet 1 tab PO BID Qty: 10 0RF Discharge Orders: Discharge ED (Routine); Ordered 05/19/24 Ordered By: Clovis Man Referrals: Adeline Cobos FNP-C [Primary Care Provider] - Patient Instructions: Urinary Tract Infection in Women (ED), Vertigo (DC) Activity Restrictions/Additional Instructions: Follow-up with primary care physician next week for recheck. Coding Level of Care Code ED Sample Maker Hand for Chg Fwd Related Data Home Medications Medication Instructions Recorded Confirmed estradiol 1 mg tablet 1 mg PO .COMPLEX 03/14/21 12/17/23 progesterone micronized 200 mg 200 mg PO .hs 03/14/21 12/17/23 capsule Previous Rx's Medication Instructions Recorded fluticasone propionate 50 2 spray intranasal DAILY #15.8 mL 03/14/21 mcg/actuation nasal spray,suspension (Flonase Allergy Relief) albuterol sulfate 90 mcg/actuation 2 puff inhalation Q6H PRN 06/22/21 aerosol inhaler (Ventolin HFA) shortness of breath or wheezing #8.5 grams potassium citrate 10 mEq (1,080 10 meq PO BID #180 tabs 03/10/ mg) tablet,extended release albuterol sulfate 90 mcg/actuation 2 puff inhalation QID PRN 09/01/22 aerosol inhaler (ProAir HFA) shortness of breath or wheezing #6.7 grams fluconazole 150 mg tablet 150 mg PO .q3days #2 tabs 09/01/22 (Diflucan) terconazole 0.4 % vaginal cream 1 appful vaginal .qhs 7 days #45 09/01/22 grams amoxicillin 875 mg-potassium 1 tab PO BID #10 tabs 08/28/23 clavulanate 125 mg tablet mupirocin 2 % topical ointment 1 applic topical BID #15 grams 08/28/23 allopurinol 300 mg tablet 300 mg PO DAILY #30 tabs 12/15/23 amitriptyline 25 mg tablet 25 mg PO .HS #30 tabs 12/15/23 cetirizine 10 mg tablet (Zyrtec) 10 mg PO DAILY #30 tabs 12/15/23 lisinopril 20 mg tablet 20 mg PO DAILY #30 tabs 12/15/23 promethazine-DM 6.25 mg-15 mg/5 mL 5 - 10 ml PO Q6H PRN cough #240 mL 12/15/23 oral syrup pravastatin 40 mg tablet 40 mg PO DAILY #30 tabs 12/21/23 ciprofloxacin HCl 500 mg tablet 500 mg PO BID #20 tabs 05/19/24 (Cipro) meclizine 25 mg tablet 25 mg PO TID PRN dizziness #30 tabs 05/19/24 Allergies Allergy/AdvReac Type Severity Reaction Status Date / Time Pertussis Vaccines Allergy ALGY-Anaphy Verified 12/17/23 08:29 laxis zolpidem [From Ambien] Allergy Unknown Verified 12/17/23 08:29
[2024-05-19] MEDS: ciprofloxacin 500 mg Tablet PO (22:30)
[2024-05-19] MEDS: meclizine 25 mg tablet PO (22:31)
[2024-05-19 22:45] VITALS: BP 120/86; PULSE 99; RESP 16; O2SAT 100
== END 2024-05-19 22:36 | disposition home or self-care (01) ==
PROVIDERS: Emergency Provider Emergency Medicine; PCP Nurse Practitioner Family
DX: N30.00 Acute cystitis without hematuria (principal); I10 Essential (primary) hypertension
CPT/HCPCS: 36415; 70450; 80053; 80306; 80307; 81001; 84703; 85025; 99284; J7030; J8597

== ENCOUNTER → 2024-05-23 12:30 | Outpatient (BNVA) | payer BC, SELFPAY | PROVIDERS: PCP Nurse Practitioner Family; Visit Provider Nurse Practitioner Family | DX: R73.9 Hyperglycemia, unspecified (principal) | CPT/HCPCS: 83036 ==

== ENCOUNTER → 2025-05-21 10:49 | Outpatient (BNVA) | payer OTHER, SELFPAY | PROVIDERS: PCP Nurse Practitioner Family; Visit Provider Nurse Practitioner Family | DX: R73.9 Hyperglycemia, unspecified (principal); I10 Essential (primary) hypertension | CPT/HCPCS: 80053; 80061; 83036; 84443; 85025 ==

== ENCOUNTER → 2025-06-18 14:31 | Outpatient (BNVA) | payer OTHER, SELFPAY | PROVIDERS: PCP Nurse Practitioner Family; Visit Provider Nurse Practitioner Family | DX: R05.9 Cough, unspecified (principal) | CPT/HCPCS: 71046 ==